=== PATIENT | female | born 1990 | race African-American/Black ===

== ENCOUNTER 2017-04-21 21:24 | Emergency (ER) | payer SELFPAY ==
[2017-04-21 21:39] VITALS: BP 126/86
--- NOTE | 2017-04-21 21:55 | EDM.PDOC ---
ED HPI GENERAL MEDICAL PROBLEM - General Chief Complaint: Laceration Stated Complaint: LACERATION ON RT HAND Time Seen by Provider: 04/21/17 21:54 Source of Information: Reports: Patient - History of Present Illness INITIAL COMMENTS - FREE TEXT/NARRATIVE: Patient is here for examination of a laceration to her right arm. She reports that she was walking by a mirror that she broke last night and scraped her arm on this. She denies any chronic medical conditions. She is not diabetic does not have any bleeding or clotting disorders. She did have a recent tetanus shot per her report when she returned back to college 3-4 years ago. Right Arm Pain Score (Numeric/FACES): 1 - Related Data Allergies Allergy/AdvReac Type Severity Reaction Status Date / Time dog dander Allergy Cannot Verified 07/17/15 15:34 Remember Home Meds: Home Meds . [No Known Home Meds] 04/21/17 [History] Past Medical History - Past Health History Medical/Surgical History: Denies Medical/Surgical History Other HEENT History: history of oral surgery with cap on tooth Musculoskeletal History: Reports: Other (See Below) Other Musculoskeletal History: achilles surgery 1 year ago Social & Family History - Tobacco Use Smoking Status *Q: Never Smoker - Caffeine Use Caffeine Use: Reports: Soda - Recreational Drug Use Recreational Drug Use: No Drug Use in Last 12 Months: No ED ROS GENERAL - Review of Systems Review Of Systems: See Below Constitutional: Reports: No Symptoms Respiratory: Reports: No Symptoms Cardiovascular: Reports: No Symptoms Skin: Reports: Other (laceration to right arm) ED EXAM, SKIN/RASH Exam: See Below General Appearance: Alert, WD/WN, No Apparent Distress Cardiovascular: Normal Peripheral Pulses Extremities: Normal Inspection, Normal Range of Motion Neurological: Alert, Oriented Psychiatric: Normal Affect Skin: Warm, Dry, Other (5 cm linear laceration to her right forearm) ED SKIN PROCEDURES - Laceration/Wound Repair Right Lower Arm Lac/Wound length In cm: 5 Appearance: Subcutaneous, Linear, Clean Distal NVT: No Tendon Injury Anesthetic Type: Local Local Anesthesia - Lidocaine (Xylocaine): 1% With EPI Local Anesthetic Volume: Other (7) Skin Prep: Chlorhexidine (Hibiciens) Exploration/Debridement/Repair: Wound Explored, in a Bloodless Field Closed with: Sutures Suture Size: 4-0 # of Sutures: 7 Suture Type: Nylon Course - Vital Signs Last Recorded V/S: Last Vital Signs Temp 98.6 F 04/21/17 21:37 Pulse 70 04/21/17 21:37 Resp 20 04/21/17 21:37 BP 126/86 04/21/17 21:37 Pulse Ox 100 04/21/17 21:37 - Orders/Labs/Meds Meds: Medications Discontinued Medications Generic Name Dose Route Start Last Admin Trade Name Lalo PRN Reason Stop Dose Admin Lidocaine/Epinephrine 20 ml 04/21/17 22:22 04/21/17 22:28 Xylocaine 1% With Epinephrine 1:100,000 INJECT 04/21/17 22:23 20 ml ONETIME ONE Administration - Re-Assessments/Exams Free Text/Narrative Re-Assessment/Exam: Tdap UTD. Patient tolerated wound repair well. Advised patient of wound care instructions and monitoring for infection, she verbalized understanding. She is to follow-up in 7-10 days for suture removal [facility]. 04/21/17 22:49 04/21/17 22:50 Departure - Departure Time of Disposition: 22:50 Disposition: Home, Self-Care 01 Condition: Good Clinical Impression: Laceration - Discharge Information Instructions: Laceration Care, Adult, [id number] Forms: ED Department Discharge Additional Instructions: Keep wound clean and dry. You may shower normally tomorrow but do not soak in a tub or go swimming in a hot tub or pool. Monitor for any redness or swelling or drainage. Follow-up in 7-10 days for suture removal with your primary provider.
[2017-04-21] MEDS ORDERED: Lidocaine 1% with EPINEPHrine 1:100,000 20 ML MDV INJECT ONE (22:22)
== END 2017-04-21 23:00 | disposition home or self-care (01) ==
LOC: JD.ED 21:24 → SUPCPDRO 21:24 → JD.ED 23:00
DX: S51.811A Laceration without foreign body of right forearm, initial encounter (principal); Z98.890 Other specified postprocedural states; W25.XXXA Contact with sharp glass, initial encounter
CPT/HCPCS: 12002; 99282-25; 99283-25

== ENCOUNTER 2018-04-30 15:50 | Emergency (ER) | payer MEDICAID ==
[2018-04-30 16:05] VITALS: BP 125/74
--- NOTE | 2018-04-30 16:53 | EDM.PDOC ---
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 Patient reports last menstrual period was February 15. She has had 2 positive at-home test. She states that she developed some spotting. She reports that today she appreciated heavier bleeding and passed a large clot. Reports associated symptoms of lightheadedness and dizziness. She has had some cramping in her suprapubic area and back throughout this this . she denies any current cramping. Denies any syncope. Patient is a . She has not yet seen an OB for this . believes her blood type is A+. Lower Abdomen Pain Score (Numeric/FACES): 7 - Related Data Allergies Allergy/AdvReac Type Severity Reaction Status Date / Time dog dander Allergy Cannot Verified 04/30/18 16:05 Remember Home Meds: Home Meds . 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 Denies: Nausea, Vomiting : Reports: Other (reports vaginal bleeding). Denies: Dysuria Musculoskeletal: Reports: Back Pain (during this , but none currently) Neurological: Reports: Dizziness. Denies: Syncope ED EXAM - Physical Exam Exam: See Below Exam Limited By: No Limitations General Appearance: Alert, WD/WN, No Apparent Distress Respiratory/Chest: No Respiratory Distress, Lungs Clear, Normal Breath Sounds Cardiovascular: Normal Peripheral Pulses, Regular Rate, Rhythm, No Murmur GI/Abdominal Exam: Normal Bowel Sounds, Soft, Non-Tender (Female) Exam: Vaginal Bleeding. No: Cervical Dilatation, Products of Conception, Tissue Present in Cervix/Vagina Neurological: Alert, Oriented, Normal Cognition Psychiatric: Normal Affect, Normal Mood Skin Exam: Warm, Dry, Normal Color Course - Vital Signs Last Recorded V/S: Last Vital Signs Temp 97.9 F 04/30/18 16:02 Pulse 89 04/30/18 16:02 Resp 18 04/30/18 16:02 BP 125/74 04/30/18 16:02 Pulse Ox 100 04/30/18 16:02 - Orders/Labs/Meds Labs: Laboratory Tests 04/30/18 04/30/18 04/30/18 Range/Units 16:39 16:39 16:39 HCG, Qual Positive H (NEGATIVE) HCG, Quant 1888.0 mIU/mL Urine Color (Yellow) Urine Appearance (Clear) Urine pH (5.0-8.0) Ur Specific [place] (1.005-1.030) Urine Protein (Negative) Urine Glucose (UA) (Negative) Urine Ketones (Negative) Urine Occult Blood (Negative) Urine Nitrite (Negative) Urine Bilirubin (Negative) Urine Urobilinogen (0.2-1.0) Ur Leukocyte Esterase (Negative) Urine RBC (0-5) /hpf Urine WBC (0-5) /hpf Ur Epithelial Cells (0-5) /hpf Urine Bacteria (FEW) /hpf Urine Mucus (FEW) /hpf Blood Type A POSITIVE 04/30/18 Range/Units 17:43 HCG, Qual (NEGATIVE) HCG, Quant mIU/mL Urine Color Yellow (Yellow) Urine Appearance Clear (Clear) Urine pH 6.5 (5.0-8.0) Ur Specific [place] 1.015 (1.005-1.030) Urine Protein Negative (Negative) Urine Glucose (UA) Negative (Negative) Urine Ketones Negative (Negative) Urine Occult Blood 3+ H (Negative) Urine Nitrite Negative (Negative) Urine Bilirubin Negative (Negative) Urine Urobilinogen 0.2 (0.2-1.0) Ur Leukocyte Esterase Negative (Negative) Urine RBC 10-20 H (0-5) /hpf Urine WBC 0-5 (0-5) /hpf Ur Epithelial Cells 0-5 (0-5) /hpf Urine Bacteria Few (FEW) /hpf Urine Mucus Few (FEW) /hpf Blood Type - Radiology Interpretation Free Text/Narrative:: transvaginal ulrasound impression per vrad: No intrauterine identified. Continued follow-up of b-hcg values is advised if ectopic is being considered. 1.4 cm submucosal fibroid. - Re-Assessments/Exams Free Text/Narrative Re-Assessment/Exam: 04/30/18 18:33 Reviewed the labs and imaging with the patient. Possible she is early with her quant low and nothing seen on ultrasound. More likely she has miscarried. I will have her follow-up with ob on Wednesday for a repeat quant and possibly additional ultrasounds pending symptoms. Discharge instructions as documented. Departure - Departure Time of Disposition: 18:33 Disposition: Home, Self-Care 01 Condition: Fair Clinical Impression: Threatened - Discharge Information *PRESCRIPTION DRUG MONITORING PROGRAM REVIEWED*: No *COPY OF PRESCRIPTION DRUG MONITORING REPORT IN PATIENT ADI: No Instructions: Threatened Miscarriage, [id number] Referrals: PCP,None [Primary Care Provider] - Oswaldo Stratton MD [Physician] - Forms: ED Department Discharge Additional Instructions: Rest. [id number] Tylenol as needed for discomfort. Make sure you're drinking plenty of fluids. Follow-up with Ob on Wednesday. Recommend Dr. Stratton or Dr. High at the [facility]. Call [phone] to schedule with him. you will need a repeat hCG to see if it is going up or down. He may also need ultrasounds to further evaluate. Please return to the ER if your symptoms change or worsen.
--- NOTE | 2018-05-01 11:01 | US ---
First trimester obstetrical ultrasound: Multiple real-time images were obtained transvaginally. Comparison: No previous study. No intrauterine gestational sac is seen. Small right adnexal cyst measuring 1.7 cm is noted. Small amount of free fluid is seen within the cul-de-sac. Questionable 1.4 cm subendometrial fibroid is present. No ovarian abnormality is seen. Impression: 1. No intrauterine gestational sac. Other incidental findings. 2. If patient has positive test, recommend repeat beta hCG to make sure levels decrease to confirm that ultrasound findings represent miscarriage and not nonvisualized ectopic . Diagnostic code #3 I agree with preliminary report issued by [facility] ([facility] report finalized on 04/30/18, 6:42 PM Central Time)
== END 2018-04-30 18:46 | disposition home or self-care (01) ==
LOC: JD.ED 15:50
DX: O20.0 Threatened abortion (principal); Z3A.01 Less than 8 weeks gestation of pregnancy
CPT/HCPCS: 36415; 76817; 76817-26; 81001; 84702; 84703; 86900; 86901; 99283; 99284-25

== ENCOUNTER 2020-07-15 16:09 | Emergency (ER) | payer SELFPAY ==
[2020-07-15] MEDS ORDERED: Sodium Chloride 0.9% 10 ML Syringe FLUSH PRN (17:32)
[2020-07-15] MEDS ORDERED: Sodium Chloride 0.9% 1,000 ML IV ONE (17:32)
[2020-07-15] MEDS ORDERED: Ketorolac 30 MG/ML SDV IVPUSH ONE (17:32)
[2020-07-15] MEDS ORDERED: Metoclopramide 10 MG/2 ML SDV IVPUSH ONE (17:32)
[2020-07-15] MEDS ORDERED: diphenhydrAMINE 50 MG/ML SDV IVPUSH ONE (17:32)
--- NOTE | 2020-07-15 17:40 | EDM.PDOC ---
ED HPI GENERAL MEDICAL PROBLEM - General Chief Complaint: Respiratory Problem Stated Complaint: HEADACHE/SORE NECK/NAUSEA Time Seen by Provider: 07/15/20 17:12 Source of Information: Reports: Patient, RN Notes Reviewed History Limitations: Reports: No Limitations - History of Present Illness INITIAL COMMENTS - FREE TEXT/NARRATIVE: Patient is a 29-year-old female who presents to the ED for evaluation of her headache. She states that since Wednesday, she has had a headache behind her eyes, and in the back of her head. She has been using Tylenol and this does not seem to helping much. She does feel nauseated, and states that she did vomit 1 time last night and early this morning. She is having some minor swelling to the left side of the neck, and into her submandibular area. She is not complaining of any sore throat right now, but states she has had a sore throat on and off for the past few days. She tries using kinsey tea to relieve the sore throat. The patient notes that she recently came off quarantine today, and she was quarantined due to her daughter having a positive exposure to her teacher. The patient states that her and her daughter did test negative last week for this. Patient did not think she is had any fevers or chills, she is not having a cough or shortness of breath, but having sore throat, nausea/vomiting. 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 ED EXAM, GENERAL - Physical Exam Exam: See Below Exam Limited By: No Limitations General Appearance: Alert, WD/WN, No Apparent Distress Ears: Normal External Exam, Normal Canal, Hearing Grossly Normal, Normal TMs Nose: Normal Inspection Throat/Mouth: Normal Inspection, Normal Lips, Normal Teeth, Normal Gums, Normal Oropharynx, Normal Voice, No Airway Compromise Head: Atraumatic, Normocephalic Neck: Normal Inspection, Full Range of Motion, Lymphadenopathy (L) (submandibular tenderness) Respiratory/Chest: No Respiratory Distress, Lungs Clear, Normal Breath Sounds, No Accessory Muscle Use, Chest Non-Tender Cardiovascular: Normal Peripheral Pulses, Regular Rate, Rhythm, No Murmur Peripheral Pulses: 2+: Radial (L), Radial (R) Extremities: Normal Inspection, Normal Capillary Refill Neurological: Alert, Oriented, Normal Cognition, No Motor/Sensory Deficits Psychiatric: Normal Affect, Normal Mood Skin Exam: Warm, Dry, Intact, Normal Color, No Rash Course - Vital Signs Last Recorded V/S: Last Vital Signs Temp 98.8 F 07/15/20 17:19 Pulse 99 07/15/20 17:19 Resp 20 07/15/20 17:19 BP 126/88 07/15/20 17:19 Pulse Ox 98 07/15/20 17:19 - Orders/Labs/Meds Orders: Active Orders 24 hr Category Date Time Status Peripheral IV Care [RC] . DIRECTED Care 07/15/20 17:32 Ordered CBC WITH AUTO DIFF [HEME] Stat Lab 07/15/20 17:32 Ordered CORONAVIRUS COVID-19 PCR PHL Stat Lab 07/15/20 17:33 Ordered Sodium Chloride 0.9% [Saline Flush] Med 07/15/20 17:32 Ordered 10 ml FLUSH ASDIRECTED PRN Peripheral IV Insertion Adult [OM.PC] Routine Oth 07/15/20 17:32 Ordered Medication Orders Sodium Chloride (Saline Flush) 10 ml FLUSH ASDIRECTED PRN PRN Reason: Keep Vein Open Last Admin: 07/15/20 18:04 Dose: 10 ml Documented by: FARIBA Labs: Laboratory Tests 07/15/20 07/15/20 Range/Units 17:57 17:57 WBC 7.93 (3.98-10.04) K/mm3 RBC 4.03 (3.98-5.22) M/mm3 Hgb 10.6 L (11.2-15.7) gm/dl Hct 33.6 L (34.1-44.9) % MCV 83.4 (79.4-94.8) fl MCH 26.3 (25.6-32.2) pg MCHC 31.5 L (32.2-35.5) g/dl RDW Std Deviation 38.3 (36.4-46.3) fL Plt Count 286 (182-369) K/mm3 MPV 10.2 (9.4-12.3) fl Neut % (Auto) 83.7 H (34.0-71.1) % Lymph % (Auto) 7.7 L (19.3-51.7) % Brooke % (Auto) 7.6 (4.7-12.5) % Eos % (Auto) 0.8 (0.7-5.8) Baso % (Auto) 0.1 (0.1-1.2) % Neut # (Auto) 6.64 H (1.56-6.13) K/mm3 Lymph # (Auto) 0.61 L (1.18-3.74) K/mm3 Brooke # (Auto) 0.60 H (0.24-0.36) K/mm3 Eos # (Auto) 0.06 (0.04-0.36) K/mm3 Baso # (Auto) 0.01 (0.01-0.08) K/mm3 Sodium 135 L (136-145) mEq/L Potassium 3.0 L (3.5-5.1) mEq/L Chloride 96 L (98-107) mEq/L Carbon Dioxide 27 (21-32) mEq/L Anion Gap 15.0 (5-15) BUN 7 (7-18) mg/dL Creatinine 0.8 (0.55-1.02) mg/dL Est Cr Clr Drug Dosing 117.02 mL/min Estimated GFR (MDRD) > 60 (>60) mL/min BUN/Creatinine Ratio 8.8 L (14-18) Glucose 116 H (74-106) mg/dL Calcium 9.3 (8.5-10.1) mg/dL Total Bilirubin 1.6 H (0.2-1.0) mg/dL AST 32 (15-37) U/L ALT 60 H (14-59) U/L Alkaline Phosphatase 101 (46-116) U/L Total Protein 9.0 H (6.4-8.2) g/dl Albumin 3.6 (3.4-5.0) g/dl Globulin 5.4 gm/dL Albumin/Globulin Ratio 0.7 L (1-2) Meds: Medications Generic Name Dose Route Start Last Admin Trade Name Freq PRN Reason Stop Dose Admin Sodium Chloride 10 ml 07/15/20 17:32 07/15/20 18:04 Saline Flush FLUSH 10 ml ASDIRECTED PRN Administration Keep Vein Open Discontinued Medications Generic Name Dose Route Start Last Admin Trade Name Freq PRN Reason Stop Dose Admin Diphenhydramine HCl 25 mg 07/15/20 17:32 07/15/20 18:07 Benadryl IVPUSH 07/15/20 17:33 25 mg ONETIME ONE Administration Sodium Chloride 1,000 mls @ 999 mls/hr 07/15/20 17:32 07/15/20 18:01 Normal Saline IV 07/15/20 18:32 999 mls/hr ASDIRECTED ONE Administration Ketorolac Tromethamine 30 mg 07/15/20 17:32 07/15/20 18:05 Toradol IVPUSH 07/15/20 17:33 30 mg ONETIME ONE Administration Metoclopramide HCl 10 mg 07/15/20 17:32 07/15/20 18:02 Reglan IVPUSH 07/15/20 17:33 10 mg ONETIME ONE Administration Potassium Chloride 40 meq 07/15/20 18:44 Klor-Con M20 PO 07/15/20 18:45 ONETIME ONE - Re-Assessments/Exams Free Text/Narrative Re-Assessment/Exam: 07/15/20 17:42 Patient presents to the ED for her headache, sore neck, nausea. We will give her some medication for headache, take some basic labs and do a state send out for coronavirus test. 07/15/20 18:46 Trip screen is positive at today's visit, she will be started on amoxicillin on outpatient basis. Labs did demonstrate a mildly low potassium at 3.0. We will give her 40 mEq in the ER p.o., and hopefully discharge her home after her other labs have resulted. Departure - Departure Time of Disposition: 18:50 Disposition: Home, Self-Care 01 Condition: Good Clinical Impression: Strep throat, Suspected 2019-nCoV infection - Discharge Information *PRESCRIPTION DRUG MONITORING PROGRAM REVIEWED*: No *COPY OF PRESCRIPTION DRUG MONITORING REPORT IN PATIENT ADI: No Prescriptions: Amoxicillin 500 mg PO BID 10 Days #20 tab Instructions: Strep Throat, Adult, [id number] Referrals: PCP,None [Primary Care Provider] - Forms: ED Department Discharge, ED Return to Work/School Form Additional Instructions: You were evaluated in the ER today for your headache, and nausea and left-sided neck swelling. Your strep screen was positive at today's visit, you will be started on amoxicillin for this, 1 tab 2 times a day for the next 10 days. You were given some IV medications for your headache, this seemed to relieve most your symptoms. You may use 600 mg ibuprofen every 6 hours for further pain relief of your throat, do not exceed 3200 mg in a 24-hour time span. You were tested for coronavirus at today's visit, please try to limit your exposure to others until you get the results from your state test back. This will likely take 2-3 business days. We will call you with your results. Please return to the ER at any time if symptoms change or worsen. Sepsis Event Note (ED) - Evaluation Sepsis Screening Result: No Definite Risk - Focused Exam Vital Signs: Vital Signs Temp Pulse Resp BP Pulse Ox 07/15/20 17:19 98.8 F 99 20 126/88 98 - My Orders Last 24 Hours: My Active Orders 07/15/20 17:32 Peripheral IV Care [RC] . DIRECTED CBC WITH AUTO DIFF [HEME] Stat Sodium Chloride 0.9% [Saline Flush] 10 ml FLUSH ASDIRECTED PRN Peripheral IV Insertion Adult [OM.PC] Routine 07/15/20 17:33 CORONAVIRUS COVID-19 PCR PHL Stat - Assessment/Plan Last 24 Hours: My Active Orders 07/15/20 17:32 Peripheral IV Care [RC] . DIRECTED CBC WITH AUTO DIFF [HEME] Stat Sodium Chloride 0.9% [Saline Flush] 10 ml FLUSH ASDIRECTED PRN Peripheral IV Insertion Adult [OM.PC] Routine 07/15/20 17:33 CORONAVIRUS COVID-19 PCR PHL Stat
[2020-07-15] MEDS ORDERED: Potassium Chloride 20 MEQ Tab.ER PO ONE (18:44)
[2020-07-15 19:08] VITALS: BP 109/72; PULSE 96
== END 2020-07-15 19:11 | disposition home or self-care (01) ==
LOC: JD.ED 16:09
DX: J02.0 Streptococcal pharyngitis (principal); E87.6 Hypokalemia; Z20.828 Contact with and (suspected) exposure to other viral communicable diseases; Z91.048 Other nonmedicinal substance allergy status
CPT/HCPCS: 36415; 80053; 85025; 87430; 96361; 96374; 96375; 99284; A9270; J1200; J1885; J2765; J7030; U0002

== ENCOUNTER 2020-07-24 10:32 | Inpatient (IN) | payer SELFPAY ==
[2020-07-24] MEDS ORDERED: Ondansetron 4 MG/2 ML SDV IVPUSH ONE (11:59)
[2020-07-24] MEDS ORDERED: Sodium Chloride 0.9% 1,000 ML IV STA (11:59)
[2020-07-24] MEDS: Potassium Chloride 10 MEQ in Premix Bag 1 BAG IV SCH ×5 (13:00→18:09)
[2020-07-24] MEDS ORDERED: Sodium Chloride 0.9% 10 ML Syringe FLUSH PRN (13:11)
[2020-07-24] MEDS ORDERED: Iopamidol 612 MG/ML 100 ML Bottle IVPUSH ONE (13:11)
[2020-07-24] MEDS ORDERED: Diatrizoate Meglumine/Diatrizoate Sodium 37% 120 ML Bottle PO ONE (13:11)
--- NOTE | 2020-07-24 13:44 | EDM.PDOC ---
ED HPI GENERAL MEDICAL PROBLEM - General Chief Complaint: General Stated Complaint: COVID + Time Seen by Provider: 07/24/20 11:12 Source of Information: Reports: Patient History Limitations: Reports: No Limitations - History of Present Illness INITIAL COMMENTS - FREE TEXT/NARRATIVE: Patient is a 29-year-old female presenting to the emergency department with complaints of weakness, chills, and abdominal pain over the course approximately the last 10 days. She was seen in this emergency department 9 days ago and diagnosed with strep throat and started on amoxicillin. She has been taking this medication. States that her throat feels better, however she has had numerous episodes of diarrhea, nausea and vomiting, upper abdominal pain, and generalized weakness and chills. She does not have a thermometer at home so she has not checked her temperature. She was Covid tested on July 15 when she was in the emergency department was found to be negative. Blood work was completed at that time as well and was found to be grossly unremarkable. Abdomen Pain Score (Numeric/FACES): 6 - Related Data Allergies Allergy/AdvReac Type Severity Reaction Status Date / Time dog dander Allergy Cannot Verified 07/24/20 10:51 Remember Home Meds: Home Meds Amoxicillin 500 mg PO BID 10 Days #20 tab 07/15/20 [Rx] Ascorbic Acid [Vitamin C] 0 mg PO DAILY 07/24/20 [History] Ferrous Sulfate [Iron] 0 mg PO DAILY 07/24/20 [History] Past Medical History - Past Health History Medical/Surgical History: Denies Medical/Surgical History HEENT History: Reports: Other (See Below) Other HEENT History: history of oral surgery with cap on tooth Gastrointestinal History: Reports: GERD [employer]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: , 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 Musculoskeletal History: Reports: Other (See Below) Other Musculoskeletal History: right achilles surgery 1 year ago Endocrine/Metabolic History: Reports: Obesity/BMI 30+ - Past Surgical History HEENT Surgical History: Reports: Oral Surgery Female Surgical History: Reports: Other (See Below) Other Female Surgeries/Procedures: breast surgery--abcess Social & Family History - Tobacco Use Tobacco Use Status *Q: Never Tobacco User - Caffeine Use Caffeine Use: Reports: Tea - Recreational Drug Use Recreational Drug Use: Yes Recreational Drug Type: Reports: Marijuana/Hashish Recreational Drug Use Frequency: Rarely ED ROS GENERAL - Review of Systems Review Of Systems: See Below Constitutional: Reports: Chills, Weakness, Fatigue, Decreased Appetite HEENT: Reports: No Symptoms Respiratory: Reports: Cough. Denies: Shortness of Breath Cardiovascular: Reports: No Symptoms. Denies: Chest Pain, Lightheadedness Endocrine: Reports: No Symptoms GI/Abdominal: Reports: Abdominal Pain, Diarrhea, Nausea, Vomiting : Reports: No Symptoms Musculoskeletal: Reports: No Symptoms Skin: Reports: No Symptoms Neurological: Reports: No Symptoms Psychiatric: Reports: No Symptoms Hematologic/Lymphatic: Reports: No Symptoms Immunologic: Reports: No Symptoms ED EXAM, GENERAL - Physical Exam Exam: See Below General Appearance: Alert, WD/WN, No Apparent Distress Respiratory/Chest: No Respiratory Distress, Lungs Clear, Normal Breath Sounds, No Accessory Muscle Use, Chest Non-Tender Cardiovascular: Normal Peripheral Pulses, Regular Rate, Rhythm, No Edema, No Gallop, No JVD, No Murmur, No Rub GI/Abdominal: Normal Bowel Sounds, Soft, No Organomegaly, No Distention, No Abnormal Bruit, No Mass, Tender (Epigastric tenderness) Back Exam: Normal Inspection, Full Range of Motion. No: CVA Tenderness (L), CVA Tenderness (R) Neurological: Alert, Oriented, CN II-XII Intact, Normal Cognition, Normal Gait, Normal Reflexes, No Motor/Sensory Deficits Psychiatric: Normal Affect, Normal Mood Skin Exam: Warm, Dry, Intact, Normal Color, No Rash Course - Vital Signs Last Recorded V/S: Last Vital Signs Temp 97.5 F 07/25/20 14:25 Pulse 106 H 07/24/20 18:10 Resp 23 H 07/25/20 14:25 BP 110/72 07/25/20 14:25 Pulse Ox 97 07/25/20 14:25 - Orders/Labs/Meds Orders: Active Orders 24 hr Category Date Time Status Abdomen Ltd [US] Stat Exams 07/24/20 15:40 Taken Medication Orders Acetaminophen (Tylenol) 650 mg PO Q4H PRN PRN Reason: Pain (Mild 1-3)/fever Azithromycin (Zithromax) 250 mg PO DAILY [facility] Last Admin: 07/25/20 08:40 Dose: 250 mg Documented by: MICKEY Potassium Chloride 10 meq/ (Premix) 100 mls @ 100 mls/hr IV ASDIRECTED [facility] Stop: 07/28/20 13:44 Last Admin: 07/24/20 18:09 Dose: 100 mls/hr Documented by: Infusion: 07/24/20 17:45 Dose: 100 mls/hr Documented by: Admin: 07/24/20 16:45 Dose: 100 mls/hr Documented by: Infusion: 07/24/20 16:28 Dose: 100 mls/hr Documented by: Admin: 07/24/20 15:28 Dose: 100 mls/hr Documented by: Infusion: 07/24/20 15:11 Dose: 100 mls/hr Documented by: Admin: 07/24/20 14:11 Dose: 100 mls/hr Documented by: Infusion: 07/24/20 14:00 Dose: 100 mls/hr Documented by: Admin: 07/24/20 13:00 Dose: 100 mls/hr Documented by: ANNMARIE Remdesivir 100 mg/ Sodium (Chloride) 100 mls @ 100 mls/hr IV Q24H [facility] Stop: 07/28/20 18:59 Morphine Sulfate (Morphine) 2 mg IVPUSH Q2H PRN PRN Reason: Pain (severe 7-10) Stop: 07/25/20 18:07 Last Admin: 07/25/20 14:26 Dose: 2 mg Documented by: Admin: 07/25/20 11:19 Dose: 2 mg Documented by: Admin: 07/25/20 08:40 Dose: 2 mg Documented by: Admin: 07/25/20 05:17 Dose: 2 mg Documented by: Admin: 07/24/20 23:44 Dose: 2 mg Documented by: Admin: 07/24/20 19:47 Dose: 2 mg Documented by: PAPI Ondansetron HCl (Zofran) 4 mg IV Q4H PRN PRN Reason: Nausea/Vomiting Oxycodone HCl (Oxycodone) 5 mg PO Q4H PRN PRN Reason: Pain (moderate 4-6) Sodium Chloride (Saline Flush) 10 ml FLUSH ONETIME PRN PRN Reason: IV FLUSH Last Admin: 07/24/20 14:38 Dose: 10 ml Documented by: ABBY Temazepam (Restoril) 15 mg PO BEDTIME PRN PRN Reason: Sleep Labs: Laboratory Tests 07/24/20 07/24/20 07/24/20 Range/Units 11:39 11:39 11:39 WBC 25.75 H (3.98-10.04) K/mm3 RBC 2.60 L (3.98-5.22) M/mm3 Hgb 6.8 L* D (11.2-15.7) gm/dl Hct 20.1 L (34.1-44.9) % MCV 77.3 L D (79.4-94.8) fl MCH 26.2 (25.6-32.2) pg MCHC 33.8 (32.2-35.5) g/dl RDW Std Deviation 33.1 L (36.4-46.3) fL Plt Count 804 H D (182-369) K/mm3 MPV 10.1 (9.4-12.3) fl Neut % (Auto) 84.2 H (34.0-71.1) % Lymph % (Auto) 8.3 L (19.3-51.7) % [place] % (Auto) 2.8 L (4.7-12.5) % Eos % (Auto) 1.6 (0.7-5.8) Baso % (Auto) 0.2 (0.1-1.2) % Neut # (Auto) 21.68 H (1.56-6.13) K/mm3 Lymph # (Auto) 2.15 (1.18-3.74) K/mm3 [place] # (Auto) 0.71 H (0.24-0.36) K/mm3 Eos # (Auto) 0.41 H (0.04-0.36) K/mm3 Baso # (Auto) 0.05 (0.01-0.08) K/mm3 Manual Slide Review Abnormal smear Sodium 133 L (136-145) mEq/L Potassium 2.9 L (3.5-5.1) mEq/L Chloride 95 L (98-107) mEq/L Carbon Dioxide 26 (21-32) mEq/L Anion Gap 14.9 (5-15) BUN 13 (7-18) mg/dL Creatinine 0.8 (0.55-1.02) mg/dL Est Cr Clr Drug Dosing 117.02 mL/min Estimated GFR (MDRD) > 60 (>60) mL/min BUN/Creatinine Ratio 16.3 (14-18) Glucose 113 H (74-106) mg/dL Lactic Acid (0.4-2.0) mmol/L Calcium 7.2 L D (8.5-10.1) mg/dL Iron (50-170) ug/dL TIBC (100-400) ug/dL % Saturation (20-55) % Transferrin (202-364) mg/dL Ferritin (8-252) ng/ml Total Bilirubin 3.0 H (0.2-1.0) mg/dL GGT (5-55) U/L AST 83 H (15-37) U/L ALT 70 H (14-59) U/L Alkaline Phosphatase 79 (46-116) U/L C-Reactive Protein 19.5 H* (<1.0) mg/dL Total Protein 7.0 (6.4-8.2) g/dl Albumin 1.8 L (3.4-5.0) g/dl Globulin 5.2 gm/dL Albumin/Globulin Ratio 0.4 L (1-2) Lipase (73-393) U/L HCG, Qual (NEGATIVE) Urine Color (Yellow) Urine Appearance (Clear) Urine pH (5.0-8.0) Ur Specific [place] (1.005-1.030) Urine Protein (Negative) Urine Glucose (UA) (Negative) Urine Ketones (Negative) Urine Occult Blood (Negative) Urine Nitrite (Negative) Urine Bilirubin (Negative) Urine Urobilinogen (0.2-1.0) Ur Leukocyte Esterase (Negative) Urine RBC (0-5) /hpf Urine WBC (0-5) /hpf Ur Squamous Epith Cells (0-5) /hpf Amorphous Sediment (NOT SEEN) /hpf Urine Bacteria (FEW) /hpf Urine Mucus (FEW) /hpf SARS-CoV-2 RNA (ANTWAN) (NEGATIVE) Blood Type A POSITIVE Gel Antibody Screen Negative Crossmatch See Detail 07/24/20 07/24/20 07/24/20 Range/Units 11:39 11:39 11:39 WBC (3.98-10.04) K/mm3 RBC (3.98-5.22) M/mm3 Hgb (11.2-15.7) gm/dl Hct (34.1-44.9) % MCV (79.4-94.8) fl MCH (25.6-32.2) pg MCHC (32.2-35.5) g/dl RDW Std Deviation (36.4-46.3) fL Plt Count (182-369) K/mm3 MPV (9.4-12.3) fl Neut % (Auto) (34.0-71.1) % Lymph % (Auto) (19.3-51.7) % [place] % (Auto) (4.7-12.5) % Eos % (Auto) (0.7-5.8) Baso % (Auto) (0.1-1.2) % Neut # (Auto) (1.56-6.13) K/mm3 Lymph # (Auto) (1.18-3.74) K/mm3 [place] # (Auto) (0.24-0.36) K/mm3 Eos # (Auto) (0.04-0.36) K/mm3 Baso # (Auto) (0.01-0.08) K/mm3 Manual Slide Review Sodium (136-145) mEq/L Potassium (3.5-5.1) mEq/L Chloride (98-107) mEq/L Carbon Dioxide (21-32) mEq/L Anion Gap (5-15) BUN (7-18) mg/dL Creatinine (0.55-1.02) mg/dL Est Cr Clr Drug Dosing mL/min Estimated GFR (MDRD) (>60) mL/min BUN/Creatinine Ratio (14-18) Glucose (74-106) mg/dL Lactic Acid (0.4-2.0) mmol/L Calcium (8.5-10.1) mg/dL Iron 116 (50-170) ug/dL TIBC 203 (100-400) ug/dL % Saturation 57 H (20-55) % Transferrin 162 L (202-364) mg/dL Ferritin 2176 H (8-252) ng/ml Total Bilirubin (0.2-1.0) mg/dL GGT (5-55) U/L AST (15-37) U/L ALT (14-59) U/L Alkaline Phosphatase (46-116) U/L C-Reactive Protein (<1.0) mg/dL Total Protein (6.4-8.2) g/dl Albumin (3.4-5.0) g/dl Globulin gm/dL Albumin/Globulin Ratio (1-2) Lipase 2354 H (73-393) U/L HCG, Qual Negative (NEGATIVE) Urine Color (Yellow) Urine Appearance (Clear) Urine pH (5.0-8.0) Ur Specific [place] (1.005-1.030) Urine Protein (Negative) Urine Glucose (UA) (Negative) Urine Ketones (Negative) Urine Occult Blood (Negative) Urine Nitrite (Negative) Urine Bilirubin (Negative) Urine Urobilinogen (0.2-1.0) Ur Leukocyte Esterase (Negative) Urine RBC (0-5) /hpf Urine WBC (0-5) /hpf Ur Squamous Epith Cells (0-5) /hpf Amorphous Sediment (NOT SEEN) /hpf Urine Bacteria (FEW) /hpf Urine Mucus (FEW) /hpf SARS-CoV-2 RNA ([facility]) (NEGATIVE) Blood Type Gel Antibody Screen Crossmatch 07/24/20 07/24/20 07/24/20 Range/Units 11:39 12:20 13:55 WBC (3.98-10.04) K/mm3 RBC (3.98-5.22) M/mm3 Hgb (11.2-15.7) gm/dl Hct (34.1-44.9) % MCV (79.4-94.8) fl MCH (25.6-32.2) pg MCHC (32.2-35.5) g/dl RDW Std Deviation (36.4-46.3) fL Plt Count (182-369) K/mm3 MPV (9.4-12.3) fl Neut % (Auto) (34.0-71.1) % Lymph % (Auto) (19.3-51.7) % [place] % (Auto) (4.7-12.5) % Eos % (Auto) (0.7-5.8) Baso % (Auto) (0.1-1.2) % Neut # (Auto) (1.56-6.13) K/mm3 Lymph # (Auto) (1.18-3.74) K/mm3 [place] # (Auto) (0.24-0.36) K/mm3 Eos # (Auto) (0.04-0.36) K/mm3 Baso # (Auto) (0.01-0.08) K/mm3 Manual Slide Review Sodium (136-145) mEq/L Potassium (3.5-5.1) mEq/L Chloride (98-107) mEq/L Carbon Dioxide (21-32) mEq/L Anion Gap (5-15) BUN (7-18) mg/dL Creatinine (0.55-1.02) mg/dL Est Cr Clr Drug Dosing mL/min Estimated GFR (MDRD) (>60) mL/min BUN/Creatinine Ratio (14-18) Glucose (74-106) mg/dL Lactic Acid 1.5 (0.4-2.0) mmol/L Calcium (8.5-10.1) mg/dL Iron (50-170) ug/dL TIBC (100-400) ug/dL % Saturation (20-55) % Transferrin (202-364) mg/dL Ferritin (8-252) ng/ml Total Bilirubin (0.2-1.0) mg/dL GGT 108 H (5-55) U/L AST (15-37) U/L ALT (14-59) U/L Alkaline Phosphatase (46-116) U/L C-Reactive Protein (<1.0) mg/dL Total Protein (6.4-8.2) g/dl Albumin (3.4-5.0) g/dl Globulin gm/dL Albumin/Globulin Ratio (1-2) Lipase (73-393) U/L HCG, Qual (NEGATIVE) Urine Color (Yellow) Urine Appearance (Clear) Urine pH (5.0-8.0) Ur Specific [place] (1.005-1.030) Urine Protein (Negative) Urine Glucose (UA) (Negative) Urine Ketones (Negative) Urine Occult Blood (Negative) Urine Nitrite (Negative) Urine Bilirubin (Negative) Urine Urobilinogen (0.2-1.0) Ur Leukocyte Esterase (Negative) Urine RBC (0-5) /hpf Urine WBC (0-5) /hpf Ur Squamous Epith Cells (0-5) /hpf Amorphous Sediment (NOT SEEN) /hpf Urine Bacteria (FEW) /hpf Urine Mucus (FEW) /hpf SARS-CoV-2 RNA ([facility]) Positive H (NEGATIVE) Blood Type Gel Antibody Screen Crossmatch 10/14/20 Range/Units 15:45 WBC (3.98-10.04) K/mm3 RBC (3.98-5.22) M/mm3 Hgb (11.2-15.7) gm/dl Hct (34.1-44.9) % MCV (79.4-94.8) fl MCH (25.6-32.2) pg MCHC (32.2-35.5) g/dl RDW Std Deviation (36.4-46.3) fL Plt Count (182-369) K/mm3 MPV (9.4-12.3) fl Neut % (Auto) (34.0-71.1) % Lymph % (Auto) (19.3-51.7) % [place] % (Auto) (4.7-12.5) % Eos % (Auto) (0.7-5.8) Baso % (Auto) (0.1-1.2) % Neut # (Auto) (1.56-6.13) K/mm3 Lymph # (Auto) (1.18-3.74) K/mm3 [place] # (Auto) (0.24-0.36) K/mm3 Eos # (Auto) (0.04-0.36) K/mm3 Baso # (Auto) (0.01-0.08) K/mm3 Manual Slide Review Sodium (136-145) mEq/L Potassium (3.5-5.1) mEq/L Chloride (98-107) mEq/L Carbon Dioxide (21-32) mEq/L Anion Gap (5-15) BUN (7-18) mg/dL Creatinine (0.55-1.02) mg/dL Est Cr Clr Drug Dosing mL/min Estimated GFR (MDRD) (>60) mL/min BUN/Creatinine Ratio (14-18) Glucose (74-106) mg/dL Lactic Acid (0.4-2.0) mmol/L Calcium (8.5-10.1) mg/dL Iron (50-170) ug/dL TIBC (100-400) ug/dL % Saturation (20-55) % Transferrin (202-364) mg/dL Ferritin (8-252) ng/ml Total Bilirubin (0.2-1.0) mg/dL GGT (5-55) U/L AST (15-37) U/L ALT (14-59) U/L Alkaline Phosphatase (46-116) U/L C-Reactive Protein (<1.0) mg/dL Total Protein (6.4-8.2) g/dl Albumin (3.4-5.0) g/dl Globulin gm/dL Albumin/Globulin Ratio (1-2) Lipase (73-393) U/L HCG, Qual (NEGATIVE) Urine Color Yellow (Yellow) Urine Appearance Slt cloudy H (Clear) Urine pH 6.0 (5.0-8.0) Ur Specific [place] 1.015 (1.005-1.030) Urine Protein Negative (Negative) Urine Glucose (UA) Negative (Negative) Urine Ketones Negative (Negative) Urine Occult Blood Negative (Negative) Urine Nitrite Negative (Negative) Urine Bilirubin 1+ H (Negative) Urine Urobilinogen 4.0 H (0.2-1.0) Ur Leukocyte Esterase Negative (Negative) Urine RBC 0-5 (0-5) /hpf Urine WBC 0-5 (0-5) /hpf Ur Squamous Epith Cells 0-5 (0-5) /hpf Amorphous Sediment Few H (NOT SEEN) /hpf Urine Bacteria Few (FEW) /hpf Urine Mucus Few (FEW) /hpf SARS-CoV-2 RNA ([facility]) (NEGATIVE) Blood Type Gel Antibody Screen Crossmatch Meds: Medications Generic Name Dose Route Start Last Admin Trade Name Freq PRN Reason Stop Dose Admin Acetaminophen 650 mg 07/24/20 18:02 Tylenol PO Q4H PRN Pain (Mild 1-3)/fever Azithromycin 250 mg 07/25/20 09:00 07/25/20 08:40 Zithromax PO 250 mg DAILY ANNALEE Administration Potassium Chloride 10 meq/ 100 mls @ 100 mls/hr 07/24/20 12:45 07/24/20 18:09 Premix IV 07/28/20 13:44 100 mls/hr ASDIRECTED ANNALEE Administration Remdesivir 100 mg/ Sodium 100 mls @ 100 mls/hr 07/25/20 18:00 Chloride IV 07/28/20 18:59 Q24H ANNALEE Morphine Sulfate 2 mg 07/24/20 18:02 07/25/20 14:26 Morphine IVPUSH 07/25/20 18:07 2 mg Q2H PRN Administration Pain (severe 7-10) Ondansetron HCl 4 mg 07/24/20 18:02 Zofran IV Q4H PRN Nausea/Vomiting Oxycodone HCl 5 mg 07/24/20 18:02 Oxycodone PO Q4H PRN Pain (moderate 4-6) Sodium Chloride 10 ml 07/24/20 13:11 07/24/20 14:38 Saline Flush FLUSH 10 ml ONETIME PRN Administration IV FLUSH Temazepam 15 mg 07/24/20 18:02 Restoril PO BEDTIME PRN Sleep Discontinued Medications Generic Name Dose Route Start Last Admin Trade Name Freq PRN Reason Stop Dose Admin Diatrizoate Meglum/Diatrizoate Sod 120 ml 07/24/20 13:11 07/24/20 14:38 Gastrografin 37% PO 07/24/20 13:12 60 ml ONETIME ONE Administration Diphenhydramine HCl 50 mg 07/24/20 14:02 07/24/20 14:12 Benadryl IVPUSH 07/24/20 14:03 50 mg ONETIME ONE Administration Sodium Chloride 1,000 mls @ 150 mls/hr 07/24/20 11:59 07/24/20 12:15 Normal Saline IV 07/24/20 18:38 999 mls/hr NOW STA Administration Sodium Chloride 1,000 mls @ 125 mls/hr 07/24/20 14:00 07/24/20 14:00 Normal Saline IV 125 mls/hr ASDIRECTED ANNALEE Administration Sodium Chloride 1,000 mls @ 125 mls/hr 07/24/20 18:15 Normal Saline IV ASDIRECTED ANNALEE Remdesivir 200 mg/ Sodium 250 mls @ 250 mls/hr 07/24/20 18:02 07/24/20 18:56 Chloride IV 07/24/20 18:03 250 mls/hr ONETIME ONE Administration Potassium Chloride/Sodium Chloride 1,000 mls @ 125 mls/hr 07/24/20 18:15 07/25/20 05:30 Normal Saline With 20 Meq Kcl IV 125 mls/hr ASDIRECTED ANNALEE Administration Iopamidol 100 ml 07/24/20 13:11 07/24/20 14:38 Isovue-300 (61%) IVPUSH 07/24/20 13:12 100 ml ONETIME ONE Administration Ondansetron HCl 4 mg 07/24/20 11:59 07/24/20 12:13 Zofran IVPUSH 07/24/20 12:00 4 mg ONETIME ONE Administration - Re-Assessments/Exams Free Text/Narrative Re-Assessment/Exam: She is a 29-year-old female presenting to the emergency department with complaints of abdominal pain, nausea and vomiting, cough, chills, diarrhea, and generalized weakness. She was seen here 9 days ago diagnosed with strep throat and treated with amoxicillin. At that time she was found to be Covid negative. On exam, she does have epigastric tenderness and appears like she does not feel well. Vital signs in triage show a minimally elevated temperature of 99.5, pulse 115, blood pressure 98/61, respiratory rate 16, oxygen 100% on room air. We will complete baseline labs give her some IV fluids. Have ordered CBC, CMP, CRP, hCG, urinalysis. Will start IV fluids at a 1 L bolus of normal saline. I have ordered Zofran for nausea. 07/24/20 13:20 Hematology was significant for WBC elevated at 25.75, hemoglobin low at 6.8, hematocrit low at 20.1, platelets elevated at 804, sodium 133, potassium 2.9, chloride 95, total bili 3.0, AST 83, ALT 70, CRP 19.5. I have ordered her IV fluids to begin at 150 mils per hour instead of a boluses to not further dilute out her hemoglobin. After discussion with patient. She denies a history of anemia. She has had no bloody or black stools. States that her diarrhea was yellowish or green. Denies any vomiting up of blood. She states she does have quite heavy menstrual periods and that her period this month was from July 13 to July 19. 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 On review, her hemoglobin was 10.6 o n 15 July and today is 6.8. Rectal exam with an occult stool was completed and found to be heme negative. Her WBC is also significantly elevated at 25.75. I have ordered a type and screen as well as crossmatch for 2 units of packed RBCs. She has not been able to produce urine sample thus far, however we will check that for urinary tract infection. Given her slightly elevated liver enzymes as well as her elevated total bili, there is concern for possible intra- abdominal infection, therefore I ordered a CT scan of the abdomen pelvis with IV and oral contrast. Her serum hCG is negative. Rajat the risk of benefits of blood transfusion and patient is in agreement to receive blood today. Appropriate written consent will be obtained. 07/24/20 1545 Lipase was found to be elevated at 2354. CT of his abdomen pelvis showed no acute intra-abdominal abnormalities, however does show a distended gallbladder. I have therefore ordered an ultrasound of the right upper quadrant to look for possible biliary obstruction. 07/24/20 1745 Ultrasound of the right upper quadrant showed no abnormalities. I have spoke with the hospitalist, Dr. Corado. He will admit the patient. 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
[2020-07-24] MEDS ORDERED: Sodium Chloride 0.9% 1,000 ML IV SCH ×2 (14:00→18:15)
[2020-07-24] MEDS ORDERED: diphenhydrAMINE 50 MG/ML SDV IVPUSH ONE (14:02)
[2020-07-24] MEDS ORDERED: Ondansetron 4 MG/2 ML SDV IV PRN (18:02)
[2020-07-24] MEDS ORDERED: Temazepam 15 MG Cap PO PRN (18:02)
--- NOTE | 2020-07-24 18:16 | PCM.HP.2 ---
H&P History of Present Illness - General Date of Service: 07/24/20 Admit Problem/Dx: Admission Diagnosis/Problem Admission Diagnosis/Problem Anemia Source of Information: Patient History Limitations: Reports: No Limitations - History of Present Illness Initial Comments - Free Text/Narative: The patient is a 29-year-old female who had presented to the emergency department complaining of weakness chills and abdominal pain over the past week. The patient said on Wednesday she had been treated for strep throat with ampicillin. The patient patient says that she was also tested for Covid on July 15, 2020 and was found to be negative. The patient also has had some episodes of nausea, vomiting and diarrhea as well as upper abdominal pain. She also has had some episodes of fever and chills. Patient has denied any hematemesis or hematochezia. Patient says that she does have a history of heavy menses. The patient also had a hemoglobin at her last ER visit that was es sentially normal. The patient also has been taking iron with vitamin C for her anemia. The patient has been in her usual state of health although 2 months ago she felt like she had COVID-19 and again was tested negative. Onset of Symptoms: Reports: Gradual Duration of Symptoms: Reports: Day(s):, Getting Worse Location: Reports: Generalized Improves with: Reports: Rest Context: Reports: Sick Contact Associated Symptoms: Reports: Cough, Fever/Chills, Headaches, Loss of Appetite, Malaise, Nausea/Vomiting Abdomen Pain Score (Numeric/FACES): 6 - Related Data Allergies/Adverse Reactions: Allergies Allergy/AdvReac Type Severity Reaction Status Date / Time dog dander Allergy Cannot Verified 07/24/20 10:51 Remember Home Medications: Home Meds Amoxicillin 500 mg PO BID 10 Days #20 tab 07/15/20 [Rx] Ascorbic Acid [Vitamin C] 0 mg PO DAILY 07/24/20 [History] Ferrous Sulfate [Iron] 0 mg PO DAILY 07/24/20 [History] Past Medical History - Past Health History Medical/Surgical History: Denies Medical/Surgical History HEENT History: Reports: Other (See Below) Other HEENT History: history of oral surgery with cap on tooth Cardiovascular History: Reports: None Respiratory History: Reports: None Gastrointestinal History: Reports: [employer] History: Reports: , Spontaneous Musculoskeletal History: Reports: Other (See Below) Other Musculoskeletal History: right achilles surgery 1 year ago Endocrine/Metabolic History: Reports: Obesity/BMI 30+ Hematologic History: Reports: None - Past Surgical History HEENT Surgical History: Reports: Oral Surgery Female Surgical History: Reports: Other (See Below) Other Female Surgeries/Procedures: breast surgery--abcess Social & Family History - Tobacco Use Tobacco Use Status *Q: Never Tobacco User - Caffeine Use Caffeine Use: Reports: Tea - Recreational Drug Use Recreational Drug Use: Yes Recreational Drug Type: Reports: Marijuana/Hashish Recreational Drug Use Frequency: Rarely H&P Review of Systems - Review of Systems: Review Of Systems: See Below General: Reports: Fever, Chills, Malaise, Weakness HEENT: Reports: Sore Throat Pulmonary: Reports: No Symptoms Cardiovascular: Reports: No Symptoms Gastrointestinal: Reports: Diarrhea, Nausea, Vomiting. Denies: Black Stool, Bloody Stool Genitourinary: Reports: No Symptoms Musculoskeletal: Reports: No Symptoms Skin: Reports: Jaundice Psychiatric: Reports: No Symptoms Neurological: Reports: No Symptoms Hematologic/Lymphatic: Reports: Anemia Immunologic: Reports: No Symptoms Exam - Exam Exam: See Below - Vital Signs Vital Signs: Last Vital Signs Temp 37.9 C 07/24/20 16:45 Pulse 106 H 07/24/20 18:10 Resp 20 07/24/20 18:10 BP 93/62 07/24/20 18:10 Pulse Ox 95 07/24/20 18:10 Weight: 98.883 kg - Exam Quality Assessment: No: Supplemental Oxygen General: Alert, Oriented, Cooperative HEENT: EACs Clear, EOMI, Nares Patent. No: Conjunctiva Clear (Conjunctivae inflamed), Mucosa Moist & Slaughter (Dry), Posterior Pharynx Clear (Inflamed) Neck: Supple, Trachea Midline, Lymphadenopathy (Anterior cervical) Lungs: Clear to Auscultation, Normal Respiratory Effort Cardiovascular: Regular Rate, Regular Rhythm GI/Abdominal Exam: Normal Bowel Sounds, No Distention, Tender (Superior to umbilicus, negative Zheng sign) (Female) Exam: Deferred Rectal (Female) Exam: Deferred (Hemoccult negative in ER) Back Exam: Normal Inspection, Full Range of Motion Extremities: Normal Inspection, Normal Range of Motion, No Pedal Edema Skin: Warm, Dry, Intact Neurological: Cranial Nerves Intact Neuro Extensive - Mental Status: Alert, Oriented x3 Neuro Extensive - Motor, Sensory, Reflexes: CN II-XII Intact Psychiatric: Alert, Normal Affect, Normal Mood - Patient Data Lab Results Last 24 hrs: Laboratory Results - last 24 hr 07/24/20 07/24/20 07/24/20 Range/Units 11:39 11:39 11:39 WBC 25.75 H (3.98-10.04) K/mm3 RBC 2.60 L (3.98-5.22) M/mm3 Hgb 6.8 L* D (11.2-15.7) gm/dl Hct 20.1 L (34.1-44.9) % MCV 77.3 L D (79.4-94.8) fl MCH 26.2 (25.6-32.2) pg MCHC 33.8 (32.2-35.5) g/dl RDW Std Deviation 33.1 L (36.4-46.3) fL Plt Count 804 H D (182-369) K/mm3 MPV 10.1 (9.4-12.3) fl Neut % (Auto) 84.2 H (34.0-71.1) % Lymph % (Auto) 8.3 L (19.3-51.7) % [place] % (Auto) 2.8 L (4.7-12.5) % Eos % (Auto) 1.6 (0.7-5.8) Baso % (Auto) 0.2 (0.1-1.2) % Neut # (Auto) 21.68 H (1.56-6.13) K/mm3 Lymph # (Auto) 2.15 (1.18-3.74) K/mm3 [place] # (Auto) 0.71 H (0.24-0.36) K/mm3 Eos # (Auto) 0.41 H (0.04-0.36) K/mm3 Baso # (Auto) 0.05 (0.01-0.08) K/mm3 Manual Slide Review Abnormal smear Sodium 133 L (136-145) mEq/L Potassium 2.9 L (3.5-5.1) mEq/L Chloride 95 L (98-107) mEq/L Carbon Dioxide 26 (21-32) mEq/L Anion Gap 14.9 (5-15) BUN 13 (7-18) mg/dL Creatinine 0.8 (0.55-1.02) mg/dL Est Cr Clr Drug Dosing 117.02 mL/min Estimated GFR (MDRD) > 60 (>60) mL/min BUN/Creatinine Ratio 16.3 (14-18) Glucose 113 H (74-106) mg/dL Lactic Acid (0.4-2.0) mmol/L Calcium 7.2 L D (8.5-10.1) mg/dL Iron (50-170) ug/dL TIBC (100-400) ug/dL % Saturation (20-55) % Transferrin (202-364) mg/dL Ferritin (8-252) ng/ml Total Bilirubin 3.0 H (0.2-1.0) mg/dL GGT (5-55) U/L AST 83 H (15-37) U/L ALT 70 H (14-59) U/L Alkaline Phosphatase 79 (46-116) U/L C-Reactive Protein 19.5 H* (<1.0) mg/dL Total Protein 7.0 (6.4-8.2) g/dl Albumin 1.8 L (3.4-5.0) g/dl Globulin 5.2 gm/dL Albumin/Globulin Ratio 0.4 L (1-2) Lipase (73-393) U/L HCG, Qual (NEGATIVE) Urine Color (Yellow) Urine Appearance (Clear) Urine pH (5.0-8.0) Ur Specific [place] (1.005-1.030) Urine Protein (Negative) Urine Glucose (UA) (Negative) Urine Ketones (Negative) Urine Occult Blood (Negative) Urine Nitrite (Negative) Urine Bilirubin (Negative) Urine Urobilinogen (0.2-1.0) Ur Leukocyte Esterase (Negative) Urine RBC (0-5) /hpf Urine WBC (0-5) /hpf Ur Squamous Epith Cells (0-5) /hpf Amorphous Sediment (NOT SEEN) /hpf Urine Bacteria (FEW) /hpf Urine Mucus (FEW) /hpf SARS-CoV-2 RNA (ANTWAN) (NEGATIVE) Blood Type A POSITIVE Gel Antibody Screen Negative Crossmatch See Detail 07/24/20 07/24/20 07/24/20 Range/Units 11:39 11:39 11:39 WBC (3.98-10.04) K/mm3 RBC (3.98-5.22) M/mm3 Hgb (11.2-15.7) gm/dl Hct (34.1-44.9) % MCV (79.4-94.8) fl MCH (25.6-32.2) pg MCHC (32.2-35.5) g/dl RDW Std Deviation (36.4-46.3) fL Plt Count (182-369) K/mm3 MPV (9.4-12.3) fl Neut % (Auto) (34.0-71.1) % Lymph % (Auto) (19.3-51.7) % [place] % (Auto) (4.7-12.5) % Eos % (Auto) (0.7-5.8) Baso % (Auto) (0.1-1.2) % Neut # (Auto) (1.56-6.13) K/mm3 Lymph # (Auto) (1.18-3.74) K/mm3 [place] # (Auto) (0.24-0.36) K/mm3 Eos # (Auto) (0.04-0.36) K/mm3 Baso # (Auto) (0.01-0.08) K/mm3 Manual Slide Review Sodium (136-145) mEq/L Potassium (3.5-5.1) mEq/L Chloride (98-107) mEq/L Carbon Dioxide (21-32) mEq/L Anion Gap (5-15) BUN (7-18) mg/dL Creatinine (0.55-1.02) mg/dL Est Cr Clr Drug Dosing mL/min Estimated GFR (MDRD) (>60) mL/min BUN/Creatinine Ratio (14-18) Glucose (74-106) mg/dL Lactic Acid (0.4-2.0) mmol/L Calcium (8.5-10.1) mg/dL Iron 116 (50-170) ug/dL TIBC 203 (100-400) ug/dL % Saturation 57 H (20-55) % Transferrin 162 L (202-364) mg/dL Ferritin 2176 H (8-252) ng/ml Total Bilirubin (0.2-1.0) mg/dL GGT (5-55) U/L AST (15-37) U/L ALT (14-59) U/L Alkaline Phosphatase (46-116) U/L C-Reactive Protein (<1.0) mg/dL Total Protein (6.4-8.2) g/dl Albumin (3.4-5.0) g/dl Globulin gm/dL Albumin/Globulin Ratio (1-2) Lipase 2354 H (73-393) U/L HCG, Qual Negative (NEGATIVE) Urine Color (Yellow) Urine Appearance (Clear) Urine pH (5.0-8.0) Ur Specific [place] (1.005-1.030) Urine Protein (Negative) Urine Glucose (UA) (Negative) Urine Ketones (Negative) Urine Occult Blood (Negative) Urine Nitrite (Negative) Urine Bilirubin (Negative) Urine Urobilinogen (0.2-1.0) Ur Leukocyte Esterase (Negative) Urine RBC (0-5) /hpf Urine WBC (0-5) /hpf Ur Squamous Epith Cells (0-5) /hpf Amorphous Sediment (NOT SEEN) /hpf Urine Bacteria (FEW) /hpf Urine Mucus (FEW) /hpf SARS-CoV-2 RNA (ANTWAN) (NEGATIVE) Blood Type Gel Antibody Screen Crossmatch 07/24/20 07/24/20 07/24/20 Range/Units 11:39 12:20 13:55 WBC (3.98-10.04) K/mm3 RBC (3.98-5.22) M/mm3 Hgb (11.2-15.7) gm/dl Hct (34.1-44.9) % MCV (79.4-94.8) fl MCH (25.6-32.2) pg MCHC (32.2-35.5) g/dl RDW Std Deviation (36.4-46.3) fL Plt Count (182-369) K/mm3 MPV (9.4-12.3) fl Neut % (Auto) (34.0-71.1) % Lymph % (Auto) (19.3-51.7) % [place] % (Auto) (4.7-12.5) % Eos % (Auto) (0.7-5.8) Baso % (Auto) (0.1-1.2) % Neut # (Auto) (1.56-6.13) K/mm3 Lymph # (Auto) (1.18-3.74) K/mm3 [place] # (Auto) (0.24-0.36) K/mm3 Eos # (Auto) (0.04-0.36) K/mm3 Baso # (Auto) (0.01-0.08) K/mm3 Manual Slide Review Sodium (136-145) mEq/L Potassium (3.5-5.1) mEq/L Chloride (98-107) mEq/L Carbon Dioxide (21-32) mEq/L Anion Gap (5-15) BUN (7-18) mg/dL Creatinine (0.55-1.02) mg/dL Est Cr Clr Drug Dosing mL/min Estimated GFR (MDRD) (>60) mL/min BUN/Creatinine Ratio (14-18) Glucose (74-106) mg/dL Lactic Acid 1.5 (0.4-2.0) mmol/L Calcium (8.5-10.1) mg/dL Iron (50-170) ug/dL TIBC (100-400) ug/dL % Saturation (20-55) % Transferrin (202-364) mg/dL Ferritin (8-252) ng/ml Total Bilirubin (0.2-1.0) mg/dL GGT 108 H (5-55) U/L AST (15-37) U/L ALT (14-59) U/L Alkaline Phosphatase (46-116) U/L C-Reactive Protein (<1.0) mg/dL Total Protein (6.4-8.2) g/dl Albumin (3.4-5.0) g/dl Globulin gm/dL Albumin/Globulin Ratio (1-2) Lipase (73-393) U/L HCG, Qual (NEGATIVE) Urine Color (Yellow) Urine Appearance (Clear) Urine pH (5.0-8.0) Ur Specific [place] (1.005-1.030) Urine Protein (Negative) Urine Glucose (UA) (Negative) Urine Ketones (Negative) Urine Occult Blood (Negative) Urine Nitrite (Negative) Urine Bilirubin (Negative) Urine Urobilinogen (0.2-1.0) Ur Leukocyte Esterase (Negative) Urine RBC (0-5) /hpf Urine WBC (0-5) /hpf Ur Squamous Epith Cells (0-5) /hpf Amorphous Sediment (NOT SEEN) /hpf Urine Bacteria (FEW) /hpf Urine Mucus (FEW) /hpf SARS-CoV-2 RNA (ANTWAN) Positive H (NEGATIVE) Blood Type Gel Antibody Screen Crossmatch 07/24/20 Range/Units 15:45 WBC (3.98-10.04) K/mm3 RBC (3.98-5.22) M/mm3 Hgb (11.2-15.7) gm/dl Hct (34.1-44.9) % MCV (79.4-94.8) fl MCH (25.6-32.2) pg MCHC (32.2-35.5) g/dl RDW Std Deviation (36.4-46.3) fL Plt Count (182-369) K/mm3 MPV (9.4-12.3) fl Neut % (Auto) (34.0-71.1) % Lymph % (Auto) (19.3-51.7) % [place] % (Auto) (4.7-12.5) % Eos % (Auto) (0.7-5.8) Baso % (Auto) (0.1-1.2) % Neut # (Auto) (1.56-6.13) K/mm3 Lymph # (Auto) (1.18-3.74) K/mm3 [place] # (Auto) (0.24-0.36) K/mm3 Eos # (Auto) (0.04-0.36) K/mm3 Baso # (Auto) (0.01-0.08) K/mm3 Manual Slide Review Sodium (136-145) mEq/L Potassium (3.5-5.1) mEq/L Chloride (98-107) mEq/L Carbon Dioxide (21-32) mEq/L Anion Gap (5-15) BUN (7-18) mg/dL Creatinine (0.55-1.02) mg/dL Est Cr Clr Drug Dosing mL/min Estimated GFR (MDRD) (>60) mL/min BUN/Creatinine Ratio (14-18) Glucose (74-106) mg/dL Lactic Acid (0.4-2.0) mmol/L Calcium (8.5-10.1) mg/dL Iron (50-170) ug/dL TIBC (100-400) ug/dL % Saturation (20-55) % Transferrin (202-364) mg/dL Ferritin (8-252) ng/ml Total Bilirubin (0.2-1.0) mg/dL GGT (5-55) U/L AST (15-37) U/L ALT (14-59) U/L Alkaline Phosphatase (46-116) U/L C-Reactive Protein (<1.0) mg/dL Total Protein (6.4-8.2) g/dl Albumin (3.4-5.0) g/dl Globulin gm/dL Albumin/Globulin Ratio (1-2) Lipase (73-393) U/L HCG, Qual (NEGATIVE) Urine Color Yellow (Yellow) Urine Appearance Slt cloudy H (Clear) Urine pH 6.0 (5.0-8.0) Ur Specific [place] 1.015 (1.005-1.030) Urine Protein Negative (Negative) Urine Glucose (UA) Negative (Negative) Urine Ketones Negative (Negative) Urine Occult Blood Negative (Negative) Urine Nitrite Negative (Negative) Urine Bilirubin 1+ H (Negative) Urine Urobilinogen 4.0 H (0.2-1.0) Ur Leukocyte Esterase Negative (Negative) Urine RBC 0-5 (0-5) /hpf Urine WBC 0-5 (0-5) /hpf Ur Squamous Epith Cells 0-5 (0-5) /hpf Amorphous Sediment Few H (NOT SEEN) /hpf Urine Bacteria Few (FEW) /hpf Urine Mucus Few (FEW) /hpf SARS-CoV-2 RNA (ANTWAN) (NEGATIVE) Blood Type Gel Antibody Screen Crossmatch Result Diagrams: 07/24/20 11:39 07/24/20 11:39 Sepsis Event Note - Evaluation Sepsis Screening Result: Possible Sepsis Risk - Focused Exam Vital Signs: Vital Signs Temp Temp Pulse Resp BP Pulse Ox 07/24/20 18:10 106 H 20 93/62 95 07/24/20 16:45 37.9 C 106 H 24 H 89/63 L 97 07/24/20 16:40 37.6 C 106 H 24 H 96/67 96 07/24/20 16:35 37.7 C 105 H 24 H 95/07/24/20 16:30 37.9 C 106 H 24 H 97/07/24/20 16:15 108 H 20 95/70 07/24/20 15:45 37.4 C 108 H 20 98/71 95 07/24/20 14:45 106 H 20 94/68 98 07/24/20 14:15 37.4 C 108 H 20 102/72 07/24/20 14:10 106 H 18 96/70 07/24/20 14:06 37.5 C 106 H 18 88/64 L 07/24/20 14:00 37.7 C 109 H 18 92/68 07/24/20 13:55 37.2 C 108 H 18 90/68 07/24/20 10:47 37.5 C 115 H 16 98/61 100 *Q Meaningful Use (ADM) - VTE *Q VTE Pharmacological Contraindications *Q: Patient has Severe Anemia - Problem List (1) COVID-19 SNOMED Code(s): 324634876 ICD Code: U07.1 - COVID-19 Status: Acute Current Visit: Yes (2) Anemia SNOMED Code(s): 867235368 ICD Code: D64.9 - ANEMIA, UNSPECIFIED Status: Acute Current Visit: Yes Qualifiers: Anemia type: acquired or hereditary hemolytic anemia Hemolytic anemia type: acquired, autoimmune, 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 (3) Cardiomegaly SNOMED Code(s): 1045131 ICD Code: I51.7 - CARDIOMEGALY Status: Chronic Priority: High Current Visit: Yes (4) Hypokalemia SNOMED Code(s): 31314379 ICD Code: E87.6 - HYPOKALEMIA Status: Acute Current Visit: Yes (5) Pancreatitis SNOMED Code(s): 58176252 ICD Code: K85.90 - ACUTE PANCREATITIS WITHOUT NECROSIS OR INFECTION, UNSP Status: Acute Current Visit: Yes Qualifiers: Chronicity: acute Pancreatitis type: unspecified pancreatitis type Acute pancreatitis complication: no infection or necrosis Qualified Code(s): K85.90 - Acute pancreatitis without necrosis or infection, unspecified (6) Strep throat SNOMED Code(s): 74092958 ICD Code: J02.0 - STREPTOCOCCAL PHARYNGITIS Status: Acute Priority: High Current Visit: Yes Problem List Initiated/Reviewed/Updated: Yes Orders Last 24hrs: Active Orders 24 hr Category Date Time Status Patient Status [ADT] Routine ADT 07/24/20 18:02 Ordered Antiembolic Devices [RC] PER UNIT ROUTINE Care 07/24/20 18:06 Ordered Cardiac Monitoring [RC] CONTINUOUS Care 07/24/20 18:04 Ordered Oxygen Therapy [RC] PRN Care 07/24/20 18:02 Ordered Pulse Oximetry [RC] CONTINUOUS Care 07/24/20 18:04 Ordered Up ad Helga [RC] ASDIRECTED Care 07/24/20 18:02 Ordered VTE/DVT Education [RC] PER UNIT ROUTINE Care 07/24/20 18:02 Ordered Vital Signs [RC] Q4H Care 07/24/20 18:02 Ordered Nothing per Oral Now Diet [DIET] Diet 07/24/20 Breakfast Ordered Abdomen Ltd [US] Stat Exams 07/24/20 15:40 Taken Abdomen Pelvis w Cont [CT] Stat Exams 07/24/20 12:46 Taken Chest 1V Frontal [CR] Stat Exams 07/24/20 12:46 Taken C-REACTIVE PROTEIN [CHEM] AM Lab 07/25/20 05:11 Ordered CBC WITH AUTO DIFF [HEME] AM Lab 07/25/20 05:11 Ordered COMPREHENSIVE METABOLIC PN,CMP [CHEM] AM Lab 07/25/20 05:11 Ordered CULTURE BLOOD [BC] Stat Lab 07/24/20 13:55 Received CULTURE BLOOD [BC] Stat Lab 07/24/20 14:08 Received D-DIMER QUANTITATIVE [COAG] AM Lab 07/25/20 05:11 Ordered LIPASE [CHEM] AM Lab 07/25/20 05:11 Ordered MAGNESIUM [CHEM] AM Lab 07/25/20 05:11 Ordered PHOSPHORUS [CHEM] AM Lab 07/25/20 05:11 Ordered Acetaminophen [TylenoL] Med 07/24/20 18:02 Ordered 650 mg PO Q4H PRN Azithromycin [Zithromax] Med 07/25/20 09:00 Ordered 250 mg PO DAILY Morphine Med 07/24/20 18:02 Ordered 2 mg IVPUSH Q2H PRN Ondansetron [Zofran] Med 07/24/20 18:02 Ordered 4 mg IV Q4H PRN Potassium Chloride [KCl 10 MEQ in Water 100 ML] 10 meq Med 07/24/20 12:45 Active Premix Bag 1 bag IV ASDIRECTED Remdesivir (Eua) [Remdesivir (EUA)] 100 mg Med 07/25/20 09:00 Ordered Sodium Chloride 0.9% [Normal Saline] 100 ml IV Q24H Remdesivir (Eua) [Remdesivir (EUA)] 200 mg Med 07/24/20 18:02 Ordered Sodium Chloride 0.9% [Normal Saline] 250 ml IV ONETIME Sodium Chloride 0.9% [Normal Saline] 1,000 ml Med 07/24/20 14:00 Active IV ASDIRECTED Sodium Chloride 0.9% [Normal Saline] 1,000 ml Med 07/24/20 18:15 Ordered IV ASDIRECTED Sodium Chloride 0.9% [Normal Saline] 1,000 ml Med 07/24/20 11:59 Active IV NOW Sodium Chloride 0.9% [Saline Flush] Med 07/24/20 13:11 Active 10 ml FLUSH ONETIME PRN Sodium Chloride 0.9% with KCl 20 mEq @ 125 mL/Hr (1000 Med 07/24/20 18:15 Ordered mL) NS + KCl 20mEq/L [Normal Saline with 20 mEq KCl] 1,000 ml IV ASDIRECTED Temazepam [Restoril] Med 07/24/20 18:02 Ordered 15 mg PO BEDTIME PRN oxyCODONE Med 07/24/20 18:02 Ordered 5 mg PO Q4H PRN Blood Culture x2 Reflex Set [OM.PC] Stat Oth 07/24/20 13:30 Ordered Sequential Compression Device [OM.PC] Per Unit Routine Oth 07/24/20 18:05 Ordered Transfuse Red Blood Cells [COMM] Routine Oth 07/24/20 13:31 Ordered VTE Pharmacological Contraindications [AST] Per Unit Oth 07/24/20 18:02 Ordered Routine Resuscitation Status Routine Resus Stat 07/24/20 18:02 Ordered Medication Orders Acetaminophen (Tylenol) 650 mg PO Q4H PRN PRN Reason: Pain (Mild 1-3)/fever Azithromycin (Zithromax) 250 mg PO DAILY ANNALEE Sodium Chloride (Normal Saline) 1,000 mls @ 150 mls/hr IV NOW STA Stop: 07/24/20 18:38 Last Admin: 07/24/20 12:15 Dose: 999 mls/hr Documented by: DELILAH Potassium Chloride 10 meq/ (Premix) 100 mls @ 100 mls/hr IV ASDIRECTED ANNALEE Stop: 07/28/20 13:44 Last Admin: 07/24/20 18:09 Dose: 100 mls/hr Documented by: Infusion: 07/24/20 17:45 Dose: 100 mls/hr Documented by: Admin: 07/24/20 16:45 Dose: 100 mls/hr Documented by: Infusion: 07/24/20 16:28 Dose: 100 mls/hr Documented by: Admin: 07/24/20 15:28 Dose: 100 mls/hr Documented by: Infusion: 07/24/20 15:11 Dose: 100 mls/hr Documented by: Admin: 07/24/20 14:11 Dose: 100 mls/hr Documented by: Infusion: 07/24/20 14:00 Dose: 100 mls/hr Documented by: Admin: 07/24/20 13:00 Dose: 100 mls/hr Documented by: ANNMARIE Sodium Chloride (Normal Saline) 1,000 mls @ 125 mls/hr IV ASDIRECTED [facility] Last Admin: 07/24/20 14:00 Dose: 125 mls/hr Documented by: ANNMARIE Sodium Chloride (Normal Saline) 1,000 mls @ 125 mls/hr IV ASDIRECTED [facility] Remdesivir 200 mg/ Sodium (Chloride) 250 mls @ 250 mls/hr IV ONETIME ONE Stop: 07/24/20 18:03 Remdesivir 100 mg/ Sodium (Chloride) 100 mls @ 100 mls/hr IV Q24H ANNALEE Stop: 07/28/20 09:59 Morphine Sulfate (Morphine) 2 mg IVPUSH Q2H PRN PRN Reason: Pain (severe 7-10) Stop: 07/25/20 18:07 Ondansetron HCl (Zofran) 4 mg IV Q4H PRN PRN Reason: Nausea/Vomiting Oxycodone HCl (Oxycodone) 5 mg PO Q4H PRN PRN Reason: Pain (moderate 4-6) Sodium Chloride (Saline Flush) 10 ml FLUSH ONETIME PRN PRN Reason: IV FLUSH Last Admin: 07/24/20 14:38 Dose: 10 ml Documented by: ABBY Temazepam (Restoril) 15 mg PO BEDTIME PRN PRN Reason: Sleep Assessment/Plan Comment:: The patient is a complex lady who presents with a number of different symptoms. The patient is anemic and her hemoglobin was 6.8 g/dL. She is received 2 units of packed red blood cells in the emergency department. CBC has been ordered. She also has leukocytosis that I think is the result of her strep throat. The patient also treated with amoxicillin and I cannot exclude a hemolytic type anemia from the amoxicillin. I placed the patient on a azithromycin 250 mg IV daily. The patient also has evidence of pancreatitis as her lipase is elevated at 2354 units. The patient will be kept n.p.o. for now. I have also ordered pain medications to help treat her abdominal pain. Ultrasound had been completed in the emergency department which ruled out cholelithiasis. The patient has denied alcohol. The patient also has a CRP which is elevated at 19.5 which is also indicative of Covid. She does have multiple electrolyte abnormalities which will also be replaced. I have ordered repeat laboratory testing for the morning. IV fluids consisting of normal saline at 120 mL liters per hour should also help to correct some of the electrolyte abnormalities. The patient's ALT and AST were normal and she does have requirements necessary for the use of Covid antivirals. I have elected to place the patient on SCDs for DVT prophylaxis due to his severe anemia. The patient has been encouraged to ambulate. Also of note the patient had mild cardiomegaly on chest x-ray. I have ordered a 2D echocardiogram to help rule out cardiomyopathy. 1. I spoke with Patient to provide information about convalescent plasma for her. 2. I offered them the Facts Sheet for Patients and Parents/Caregivers for COVID-19 convalescent plasma to read and review. 3. I stated that the therapy has been approved by the Emergency Use Authorization (EUA) process and not fully been FDA reviewed or approved. 4. I shared potential risk from the therapy including transmission of blood borne pathogens such as HIV and hepatitis C, allergic and transfusion related reactions, post-transfusion purpura. Additionally, theoretical risks including a phenomenon called anti-body dependent enhancement of infection such as seen in dengue fever or attenuation of an immune response that may make patients more susceptible to re-infection. 5. I discussed there are other potential treatment options that are currently not FDA approved to treat COVID-19. 6. Discussed with the patient that is not an exclusion for convalescent plasma treatment, but the therapy has not been fully evaluated in patients. 7. Offered the opportunity to ask questions and all questions were answered. 8. She voiced understanding and agreed to proceed with treatment for her. I spoke with her to provide information about Remdesvir for her. 2. I offered them the Facts Sheet for Patients and Parents/Caregivers for COVID-19 Remdesvir to read and review. 3. I stated that the therapy has been approved by the Emergency Use Authorization (EUA) process and not fully been FDA reviewed or approved. 4. The patient meets EUA requirements. 5. I shared that the drug may cause liver abnormalities and infusion related side effects. Additionally, other side effects are possible but not known as the drug has had limited studies. 6. I discussed there are other potential treatment options that are currently not FDA approved to treat COVID-19. Plasma treatment, but the therapy has not been fully evaluated in patients. 7. Discussed with the patient that is not an exclusion for Remdesvir treatment. 8. Offered the opportunity to ask questions and all questions were answered. 9. She voiced understanding and agreed to proceed with treatment for her. - Mortality Measure Prognosis:: Good
[2020-07-24] MEDS: Morphine 2 MG/ML SYRINGE IVPUSH PRN ×2 (19:47→23:44)
[2020-07-24] MEDS: NS + KCl 20mEq/L 1,000 ML IV SCH (21:16)
[2020-07-25] MEDS: Morphine 2 MG/ML SYRINGE IVPUSH PRN ×4 (05:17→14:26)
[2020-07-25] MEDS: NS + KCl 20mEq/L 1,000 ML IV SCH (05:30)
[2020-07-25] MEDS: Azithromycin 250 MG Tab PO SCH (08:40)
--- NOTE | 2020-07-25 16:10 | PCM.PN ---
- General Info Date of Service: 07/25/20 Admission Dx/Problem (Free Text): Admission Diagnosis/Problem Admission Diagnosis/Problem Anemia Subjective Update: Patient states that her abdomen is less tender. She also states that she is hungry. She had a bowel movement this morning. It was a greenish bowel movement. She continues to complain of right-sided neck pain behind her ear. She does have some dry throat when she swallows. She has been n.p.o. since admission. Functional Status: Reports: Pain Controlled - Review of Systems General: Reports: Fatigue HEENT: Reports: Sore Throat, Other (neck pain) Pulmonary: Reports: No Symptoms. Denies: Shortness of Breath, Cough Cardiovascular: Reports: No Symptoms Gastrointestinal: Reports: Abdominal Pain Musculoskeletal: Reports: No Symptoms Skin: Reports: No Symptoms - Patient Data Vitals - Most Recent: Last Vital Signs Temp 97.5 F 07/25/20 14:25 Pulse 106 H 07/24/20 18:10 Resp 23 H 07/25/20 14:25 BP 110/72 07/25/20 14:25 Pulse Ox 97 07/25/20 14:25 Weight - Most Recent: 95.572 kg I&O - Last 24 Hours: Intake & Output 07/25/20 07/25/20 07/25/20 06:59 14:59 22:59 Intake Total 1462 Output Total 1000 1800 Balance 462 -1800 Lab Results Last 24 Hours: Laboratory Results - last 24 hr 07/24/20 07/24/20 07/25/20 Range/Units 11:39 15:45 05:37 WBC 27.02 H (3.98-10.04) K/mm3 RBC 3.22 L (3.98-5.22) M/mm3 Hgb 8.7 L D (11.2-15.7) gm/dl Hct 26.1 L (34.1-44.9) % MCV 81.1 D (79.4-94.8) fl MCH 27.0 (25.6-32.2) pg MCHC 33.3 (32.2-35.5) g/dl RDW Std Deviation 38.8 (36.4-46.3) fL Plt Count 653 H D (182-369) K/mm3 MPV 10.1 (9.4-12.3) fl Neut % (Auto) 83.0 H (34.0-71.1) % Lymph % (Auto) 8.2 L (19.3-51.7) % [place] % (Auto) 2.7 L (4.7-12.5) % Eos % (Auto) 1.1 (0.7-5.8) Baso % (Auto) 0.2 (0.1-1.2) % Neut # (Auto) 22.42 H (1.56-6.13) K/mm3 Lymph # (Auto) 2.21 (1.18-3.74) K/mm3 [place] # (Auto) 0.74 H (0.24-0.36) K/mm3 Eos # (Auto) 0.31 (0.04-0.36) K/mm3 Baso # (Auto) 0.05 (0.01-0.08) K/mm3 Manual Slide Review Abnormal smear D-Dimer, Quantitative (0.19-0.50) mg/L Sodium (136-145) mEq/L Potassium (3.5-5.1) mEq/L Chloride (98-107) mEq/L Carbon Dioxide (21-32) mEq/L Anion Gap (5-15) BUN (7-18) mg/dL Creatinine (0.55-1.02) mg/dL Est Cr Clr Drug Dosing mL/min Estimated GFR (MDRD) (>60) mL/min BUN/Creatinine Ratio (14-18) Glucose (74-106) mg/dL Calcium (8.5-10.1) mg/dL Phosphorus (2.6-4.7) mg/dL Magnesium (1.8-2.4) mg/dl Total Bilirubin (0.2-1.0) mg/dL AST (15-37) U/L ALT (14-59) U/L Alkaline Phosphatase (46-116) U/L C-Reactive Protein (<1.0) mg/dL Total Protein (6.4-8.2) g/dl Albumin (3.4-5.0) g/dl Globulin gm/dL Albumin/Globulin Ratio (1-2) Lipase (73-393) U/L Urine Color Yellow (Yellow) Urine Appearance Slt cloudy H (Clear) Urine pH 6.0 (5.0-8.0) Ur Specific [place] 1.015 (1.005-1.030) Urine Protein Negative (Negative) Urine Glucose (UA) Negative (Negative) Urine Ketones Negative (Negative) Urine Occult Blood Negative (Negative) Urine Nitrite Negative (Negative) Urine Bilirubin 1+ H (Negative) Urine Urobilinogen 4.0 H (0.2-1.0) Ur Leukocyte Esterase Negative (Negative) Urine RBC 0-5 (0-5) /hpf Urine WBC 0-5 (0-5) /hpf Ur Squamous Epith Cells 0-5 (0-5) /hpf Amorphous Sediment Few H (NOT SEEN) /hpf Urine Bacteria Few (FEW) /hpf Urine Mucus Few (FEW) /hpf Blood Type A POSITIVE Gel Antibody Screen Negative Crossmatch See Detail 07/25/20 07/25/20 Range/Units 05:37 05:37 WBC (3.98-10.04) K/mm3 RBC (3.98-5.22) M/mm3 Hgb (11.2-15.7) gm/dl Hct (34.1-44.9) % MCV (79.4-94.8) fl MCH (25.6-32.2) pg MCHC (32.2-35.5) g/dl RDW Std Deviation (36.4-46.3) fL Plt Count (182-369) K/mm3 MPV (9.4-12.3) fl Neut % (Auto) (34.0-71.1) % Lymph % (Auto) (19.3-51.7) % [place] % (Auto) (4.7-12.5) % Eos % (Auto) (0.7-5.8) Baso % (Auto) (0.1-1.2) % Neut # (Auto) (1.56-6.13) K/mm3 Lymph # (Auto) (1.18-3.74) K/mm3 [place] # (Auto) (0.24-0.36) K/mm3 Eos # (Auto) (0.04-0.36) K/mm3 Baso # (Auto) (0.01-0.08) K/mm3 Manual Slide Review D-Dimer, Quantitative 5.86 H (0.19-0.50) mg/L Sodium 137 (136-145) mEq/L Potassium 3.7 (3.5-5.1) mEq/L Chloride 100 (98-107) mEq/L Carbon Dioxide 26 (21-32) mEq/L Anion Gap 14.7 (5-15) BUN 9 (7-18) mg/dL Creatinine 0.7 (0.55-1.02) mg/dL Est Cr Clr Drug Dosing 133.73 mL/min Estimated GFR (MDRD) > 60 (>60) mL/min BUN/Creatinine Ratio 12.9 L (14-18) Glucose 94 (74-106) mg/dL Calcium 7.6 L (8.5-10.1) mg/dL Phosphorus 2.2 L (2.6-4.7) mg/dL Magnesium 1.7 L (1.8-2.4) mg/dl Total Bilirubin 3.1 H (0.2-1.0) mg/dL AST 73 H (15-37) U/L ALT 69 H (14-59) U/L Alkaline Phosphatase 81 (46-116) U/L C-Reactive Protein 16.9 H* (<1.0) mg/dL Total Protein 7.0 (6.4-8.2) g/dl Albumin 1.8 L (3.4-5.0) g/dl Globulin 5.2 gm/dL Albumin/Globulin Ratio 0.4 L (1-2) Lipase 1510 H (73-393) U/L Urine Color (Yellow) Urine Appearance (Clear) Urine pH (5.0-8.0) Ur Specific [place] (1.005-1.030) Urine Protein (Negative) Urine Glucose (UA) (Negative) Urine Ketones (Negative) Urine Occult Blood (Negative) Urine Nitrite (Negative) Urine Bilirubin (Negative) Urine Urobilinogen (0.2-1.0) Ur Leukocyte Esterase (Negative) Urine RBC (0-5) /hpf Urine WBC (0-5) /hpf Ur Squamous Epith Cells (0-5) /hpf Amorphous Sediment (NOT SEEN) /hpf Urine Bacteria (FEW) /hpf Urine Mucus (FEW) /hpf Blood Type Gel Antibody Screen Crossmatch Edward Results Last 24 Hours: Microbiology 07/24/20 13:55 Aerobic Blood Culture - Preliminary Blood - Venous NO GROWTH AFTER 1 DAY Anaerobic Blood Culture - Preliminary NO GROWTH AFTER 1 DAY 07/24/20 14:08 Aerobic Blood Culture - Preliminary Blood - Venous - Lab Draw NO GROWTH AFTER 1 DAY Anaerobic Blood Culture - Preliminary NO GROWTH AFTER 1 DAY Med Orders - Current: Current Medications Acetaminophen (Tylenol) 650 mg PO Q4H PRN PRN Reason: Pain (Mild 1-3)/fever Azithromycin (Zithromax) 250 mg PO DAILY [facility] Last Admin: 07/25/20 08:40 Dose: 250 mg Documented by: Potassium Chloride 10 meq/ (Premix) 100 mls @ 100 mls/hr IV ASDIRECTED [facility] Stop: 07/28/20 13:44 Last Admin: 07/24/20 18:09 Dose: 100 mls/hr Documented by: Remdesivir 100 mg/ Sodium (Chloride) 100 mls @ 100 mls/hr IV Q24H [facility] Stop: 07/28/20 18:59 Morphine Sulfate (Morphine) 2 mg IVPUSH Q2H PRN PRN Reason: Pain (severe 7-10) Stop: 07/25/20 18:07 Last Admin: 07/25/20 14:26 Dose: 2 mg Documented by: Ondansetron HCl (Zofran) 4 mg IV Q4H PRN PRN Reason: Nausea/Vomiting Oxycodone HCl (Oxycodone) 5 mg PO Q4H PRN PRN Reason: Pain (moderate 4-6) Sodium Chloride (Saline Flush) 10 ml FLUSH ONETIME PRN PRN Reason: IV FLUSH Last Admin: 07/24/20 14:38 Dose: 10 ml Documented by: Temazepam (Restoril) 15 mg PO BEDTIME PRN PRN Reason: Sleep Discontinued Medications Diatrizoate Meglum/Diatrizoate Sod (Gastrografin 37%) 120 ml PO ONETIME ONE Stop: 07/24/20 13:12 Last Admin: 07/24/20 14:38 Dose: 60 ml Documented by: Diphenhydramine HCl (Benadryl) 50 mg IVPUSH ONETIME ONE Stop: 07/24/20 14:03 Last Admin: 07/24/20 14:12 Dose: 50 mg Documented by: Sodium Chloride (Normal Saline) 1,000 mls @ 150 mls/hr IV NOW STA Stop: 07/24/20 18:38 Last Admin: 07/24/20 12:15 Dose: 999 mls/hr Documented by: Sodium Chloride (Normal Saline) 1,000 mls @ 125 mls/hr IV ASDIRECTED [facility] Last Admin: 07/24/20 14:00 Dose: 125 mls/hr Documented by: Sodium Chloride (Normal Saline) 1,000 mls @ 125 mls/hr IV ASDIRECTED [facility] Remdesivir 200 mg/ Sodium (Chloride) 250 mls @ 250 mls/hr IV ONETIME ONE Stop: 07/24/20 18:03 Last Admin: 07/24/20 18:56 Dose: 250 mls/hr Documented by: Potassium Chloride/Sodium Chloride (Normal Saline With 20 Meq Kcl) 1,000 mls @ 125 mls/hr IV ASDIRECTED [facility] Last Admin: 07/25/20 05:30 Dose: 125 mls/hr Documented by: Iopamidol (Isovue-300 (61%)) 100 ml IVPUSH ONETIME ONE Stop: 07/24/20 13:12 Last Admin: 07/24/20 14:38 Dose: 100 ml Documented by: Ondansetron HCl (Zofran) 4 mg IVPUSH ONETIME ONE Stop: 07/24/20 12:00 Last Admin: 07/24/20 12:13 Dose: 4 mg Documented by: - Exam Quality Assessment: No: Supplemental Oxygen General: Alert, Oriented HEENT: Pupils Equal, Mucous Membr. Moist/Mark (Posterior pharynx is normal without erythema or exudate.) Neck: Supple, Other (Tenderness posterior to the sternocleidomastoid at the insertion just below the mastoid. No significant lymphadenopathy.) Lungs: Clear to Auscultation, Normal Respiratory Effort Cardiovascular: Regular Rate, Regular Rhythm, Murmurs (2 out of 6 systolic ejection murmur best heard in the left second intercostal space.) GI/Abdominal Exam: Normal Bowel Sounds, Soft, Non-Tender, No Distention Back Exam: Normal Inspection Extremities: Normal Inspection, Normal Range of Motion, Non-Tender, No Pedal Edema, Normal Capillary Refill Skin: Warm, Dry, Intact Neurological: No New Focal Deficit Psy/Mental Status: Alert, Normal Affect, Normal Mood Sepsis Event Note - Evaluation Sepsis Screening Result: Sepsis Risk - Focused Exam Vital Signs: Vital Signs Temp Resp BP BP Pulse Ox Pulse Ox 07/25/20 14:25 97.5 F 23 H 110/72 97 07/25/20 13:00 93 L 07/25/20 08:01 22 H 92 L 07/25/20 08:00 96.9 F 24 H 101/64 101/64 95 07/25/20 07:59 16 94 L 07/25/20 07:23 25 H 103/72 94 L 07/25/20 07:22 23 H 93 L 07/25/20 07:00 21 H 90 L 07/25/20 06:00 18 91 L 07/25/20 05:01 21 H 95 07/25/20 05:00 23 H 96/66 94 L 07/25/20 04:59 23 H 93 L 07/25/20 04:01 29 H 92 L 07/25/20 04:00 98.1 F 27 H 86/53 L 86/53 L 92 L 07/25/20 03:59 28 H 92 L - Problem List & Annotations (1) Anemia SNOMED Code(s): 135210226 Code(s): D64.9 - ANEMIA, UNSPECIFIED Status: Acute Current Visit: Yes Qualifiers: Anemia type: acquired or hereditary hemolytic anemia Hemolytic anemia type: acquired, autoimmune, 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 (2) COVID-19 SNOMED Code(s): 720428965 Code(s): U07.1 - COVID-19 Status: Acute Current Visit: Yes (3) Pancreatitis SNOMED Code(s): 42750429 Code(s): K85.90 - ACUTE PANCREATITIS WITHOUT NECROSIS OR INFECTION, UNSP Status: Acute Current Visit: Yes Qualifiers: Chronicity: acute Pancreatitis type: unspecified pancreatitis type Acute pancreatitis complication: no infection or necrosis Qualified Code(s): K85.90 - Acute pancreatitis without necrosis or infection, unspecified (4) Strep throat SNOMED Code(s): 39286884 Code(s): J02.0 - STREPTOCOCCAL PHARYNGITIS Status: Acute Priority: High Current Visit: Yes (5) Cardiomegaly SNOMED Code(s): 3932723 Code(s): I51.7 - CARDIOMEGALY Status: Chronic Priority: High Current Visit: Yes - Problem List Review Problem List Initiated/Reviewed/Updated: Yes - My Orders Last 24 Hours: My Active Orders 07/25/20 Dinner Clear Liquid Diet [DIET] - Plan Plan:: 07/24/2020 The patient is a complex lady who presents with a number of different symptoms. The patient is anemic and her hemoglobin was 6.8 g/dL. She is received 2 units of packed red blood cells in the emergency department. CBC has been ordered. She also has leukocytosis that I think is the result of her strep throat. The patient also treated with amoxicillin and I cannot exclude a hemolytic type anemia from the amoxicillin. I placed the patient on a azithromycin 250 mg IV daily. The patient also has evidence of pancreatitis as her lipase is elevated at 2354 units. The patient will be kept n.p.o. for now. I have also ordered pain medications to help treat her abdominal pain. Ultrasound had been completed in the emergency department which ruled out cholelithiasis. The patient has denied alcohol. The patient also has a CRP which is elevated at 19.5 which is also indicative of Covid. She does have multiple electrolyte abnormalities which will also be replaced. I have ordered repeat laboratory testing for the morning. IV fluids consisting of normal saline at 120 mL liters per hour should also help to correct some of the electrolyte abnormalities. The patient's ALT and AST were normal and she does have requirements necessary for the use of Covid antivirals. I have elected to place the patient on SCDs for DVT prophylaxis due to his severe anemia. The patient has been encouraged to ambulate. Also of note the patient had mild cardiomegaly on chest x-ray. I have ordered a 2D echocardiogram to help rule out cardiomyopathy. 1. I spoke with Patient to provide information about convalescent plasma for her. 2. I offered them the Facts Sheet for Patients and Parents/Caregivers for COVID-19 convalescent plasma to read and review. 3. I stated that the therapy has been approved by the Emergency Use Authorization (EUA) process and not fully been FDA reviewed or approved. 4. I shared potential risk from the therapy including transmission of blood borne pathogens such as HIV and hepatitis C, allergic and transfusion related reactions, post-transfusion purpura. Additionally, theoretical risks including a phenomenon called anti-body dependent enhancement of infection such as seen in dengue fever or attenuation of an immune response that may make patients more susceptible to re-infection. 5. I discussed there are other potential treatment options that are currently not FDA approved to treat COVID-19. 6. Discussed with the patient that is not an exclusion for convalescent plasma treatment, but the therapy has not been fully evaluated in patients. 7. Offered the opportunity to ask questions and all questions were answered. 8. She voiced understanding and agreed to proceed with treatment for her. I spoke with her to provide information about Remdesvir for her. 2. I offered them the Facts Sheet for Patients and Parents/Caregivers for COVID-19 Remdesvir to read and review. 3. I stated that the therapy has been approved by the Emergency Use Authorization (EUA) process and not fully been FDA reviewed or approved. 4. The patient meets EUA requirements. 5. I shared that the drug may cause liver abnormalities and infusion related side effects. Additionally, other side effects are possible but not known as the drug has had limited studies. 6. I discussed there are other potential treatment options that are currently not FDA approved to treat COVID-19. Plasma treatment, but the therapy has not been fully evaluated in patients. 7. Discussed with the patient that is not an exclusion for Remdesvir treatment. 8. Offered the opportunity to ask questions and all questions were answered. 9. She voiced understanding and agreed to proceed with treatment for her. 07/25/2020 Patient is doing better. She has less abdominal pain, she is off oxygen, her lipase has decreased to 1500, CRP is down to 16.9. Patient's hemoglobin is up to 8.7 after getting 2 units of packed red blood cells. White count is still significantly elevated at 27,000 and her platelets are 653. Pharmacologic anticoagulation for VTE prophylaxis has been held because of her severe anemia on presentation. She is can still continues to complain of epigastric pain. Patient has significant hyperbilirubinemia with bilirubin of 3.1 and elevated liver enzymes of AST 73 and ALT of 69. Her alkaline phosphatase is normal. Albumin is significantly low at 1.8. CT of the abdomen and ultrasound of the abdomen showed no inflammation of the pancreas, normal gallbladder, normal common bile duct, and normal liver. She continues to have sore throat and right sided neck pain just below her ear. This does make some concern for retroperitoneal abscess, but exam is fairly benign. White count still is elevated. Patient did not receive her convalescent plasma, and will not get it at this time because of not needing oxygen. She is also not on dexamethasone. CRP has improved. I question the patient's diagnosis of pancreatitis since the CT and ultrasound did not show any inflammation of the pancreas. It is possible that the lipase was increased for another unknown reason even possibly secondary to Covid. We will continue to treat like pancreatitis, but need to be very careful of fluid administration because of her Covid disease. Plan Get direct and indirect bilirubin, CRP, CMP, CBC, D-dimer, haptoglobin, LDH, magnesium, phosphorus, reticulocyte count, and procalcitonin in the morning Get stools for occult blood Start Rocephin 2 g daily and continue azithromycin If not improving tomorrow will consider CT scan of the neck. Start Protonix 40 mg IV every 12 hours Start clear liquid diet and stop IV fluids.
[2020-07-25] MEDS ORDERED: Sodium Chloride 0.9% 100 ML ONE (17:28)
[2020-07-25] MEDS: Acetaminophen 325 MG Tab PO PRN (17:35)
[2020-07-25] MEDS: cefTRIAXone 2 GM in Sodium Chloride 0.9% 100 ML IV SCH (17:36)
[2020-07-25] MEDS: oxyCODONE 5 MG Tab PO PRN (17:36)
[2020-07-25] MEDS: REMDESIVIR (EUA) 100 MG in Sodium Chloride 0.9% 100 ML IV SCH (17:44)
[2020-07-25] MEDS: Pantoprazole 40 MG Vial IVPUSH SCH (22:18)
[2020-07-26] MEDS: oxyCODONE 5 MG Tab PO PRN ×3 (00:03→20:16)
[2020-07-26] MEDS: Acetaminophen 325 MG Tab PO PRN (00:05)
[2020-07-26] MEDS ORDERED: Magnesium Sulfate/Water 4 GM in Premix Bag 1 BAG IV ONE (09:00)
[2020-07-26] MEDS ORDERED: Sodium Chloride 0.9% 250 ML IV SCH (09:00)
[2020-07-26] MEDS: Pantoprazole 40 MG Vial IVPUSH SCH ×2 (09:08→21:09)
[2020-07-26] MEDS: Azithromycin 250 MG Tab PO SCH (09:09)
[2020-07-26] MEDS: Enoxaparin 40 MG/0.4 ML Syringe SUBCUT SCH (10:56)
--- NOTE | 2020-07-26 12:54 | PCM.PN ---
- General Info Date of Service: 07/26/20 Admission Dx/Problem (Free Text): Admission Diagnosis/Problem Admission Diagnosis/Problem Anemia Subjective Update: Patient states that she is feeling better. Her abdomen is less tender and she is tolerating her diet of clear liquids well. She is requesting to have an increase in her diet. Echocardiogram showed a normal left ventricular ejection fraction with mild concentric left ventricular hypertrophy and mild biatrial dilatation. She continues on room air. Her neck pain is improved and she denies any difficulty swallowing. Functional Status: Reports: Pain Controlled - Review of Systems General: Reports: No Symptoms HEENT: Reports: No Symptoms Pulmonary: Reports: No Symptoms Cardiovascular: Reports: No Symptoms Gastrointestinal: Reports: Abdominal Pain (Improved) Musculoskeletal: Reports: No Symptoms Psychiatric: Reports: No Symptoms - Patient Data Vitals - Most Recent: Last Vital Signs Temp 97.2 F 07/26/20 09:15 Pulse 106 H 07/24/20 18:10 Resp 24 H 07/26/20 09:15 BP 109/78 07/26/20 09:15 Pulse Ox 95 07/26/20 09:15 Weight - Most Recent: 95.572 kg I&O - Last 24 Hours: Intake & Output 07/25/20 07/26/20 07/26/20 22:59 06:59 14:59 Intake Total 1230 1700 Output Total 2150 1000 Balance -920 700 Lab Results Last 24 Hours: Laboratory Results - last 24 hr 07/26/20 07/26/20 07/26/20 Range/Units 05:31 05:31 05:31 WBC 16.14 H (3.98-10.04) K/mm3 RBC 3.34 L (3.98-5.22) M/mm3 Hgb 9.1 L (11.2-15.7) gm/dl Hct 28.1 L (34.1-44.9) % MCV 84.1 D (79.4-94.8) fl MCH 27.2 (25.6-32.2) pg MCHC 32.4 (32.2-35.5) g/dl RDW Std Deviation 40.8 (36.4-46.3) fL Plt Count 613 H (182-369) K/mm3 MPV 9.8 (9.4-12.3) fl Neut % (Auto) 81.7 H (34.0-71.1) % Lymph % (Auto) 11.1 L (19.3-51.7) % [place] % (Auto) 3.3 L (4.7-12.5) % Eos % (Auto) 1.4 (0.7-5.8) Baso % (Auto) 0.2 (0.1-1.2) % Neut # (Auto) 13.18 H (1.56-6.13) K/mm3 Lymph # (Auto) 1.79 (1.18-3.74) K/mm3 [place] # (Auto) 0.54 H (0.24-0.36) K/mm3 Eos # (Auto) 0.23 (0.04-0.36) K/mm3 Baso # (Auto) 0.03 (0.01-0.08) K/mm3 Manual Slide Review Abnormal smear Percent Retic 6.84 H (0.50-1.70) % D-Dimer, Quantitative 4.83 H (0.19-0.50) mg/L Sodium 137 (136-145) mEq/L Potassium 4.1 (3.5-5.1) mEq/L Chloride 102 (98-107) mEq/L Carbon Dioxide 25 (21-32) mEq/L Anion Gap 14.1 (5-15) BUN 10 (7-18) mg/dL Creatinine 0.7 (0.55-1.02) mg/dL Est Cr Clr Drug Dosing 133.73 mL/min Estimated GFR (MDRD) > 60 (>60) mL/min BUN/Creatinine Ratio 14.3 (14-18) Glucose 89 (74-106) mg/dL Calcium 7.9 L (8.5-10.1) mg/dL Phosphorus 2.9 (2.6-4.7) mg/dL Magnesium 1.6 L (1.8-2.4) mg/dl Total Bilirubin 2.0 H (0.2-1.0) mg/dL Direct Bilirubin 1.70 H (0.0-0.2) mg/dl Indirect Bilirubin 0.30 AST 42 H (15-37) U/L ALT 52 (14-59) U/L Alkaline Phosphatase 76 (46-116) U/L Lactate Dehydrogenase 223 (81-234) U/L C-Reactive Protein 12.4 H* (<1.0) mg/dL Total Protein 6.8 (6.4-8.2) g/dl Albumin 1.8 L (3.4-5.0) g/dl Globulin 5.0 gm/dL Albumin/Globulin Ratio 0.4 L (1-2) Edward Results Last 24 Hours: Microbiology 07/25/20 21:00 Occult Blood - Final Stool / Feces 07/24/20 13:55 Aerobic Blood Culture - Preliminary Blood - Venous NO GROWTH AFTER 1 DAY Anaerobic Blood Culture - Preliminary NO GROWTH AFTER 1 DAY 07/24/20 14:08 Aerobic Blood Culture - Preliminary Blood - Venous - Lab Draw NO GROWTH AFTER 1 DAY Anaerobic Blood Culture - Preliminary NO GROWTH AFTER 1 DAY Med Orders - Current: Current Medications Acetaminophen (Tylenol) 650 mg PO Q4H PRN PRN Reason: Pain (Mild 1-3)/fever Last Admin: 07/26/20 00:05 Dose: 650 mg Documented by: Azithromycin (Zithromax) 250 mg PO DAILY [facility] Stop: 07/30/20 09:01 Last Admin: 07/26/20 09:09 Dose: 250 mg Documented by: Enoxaparin Sodium (Lovenox) 40 mg SUBCUT DAILY [facility] Last Admin: 07/26/20 10:56 Dose: 40 mg Documented by: Remdesivir 100 mg/ Sodium (Chloride) 100 mls @ 100 mls/hr IV Q24H [facility] Stop: 07/28/20 18:59 Last Admin: 07/25/20 17:44 Dose: 100 mls/hr Documented by: Ceftriaxone Sodium 2 gm/ (Sodium Chloride) 100 mls @ 200 mls/hr IV Q24H [facility] Stop: 07/29/20 17:29 Last Admin: 07/25/20 17:36 Dose: 200 mls/hr Documented by: Magnesium Sulfate 4 gm/ Premix 50 mls @ 12.5 mls/hr IV ONETIME ONE Stop: 07/26/20 12:59 Last Admin: 07/26/20 09:08 Dose: 12.5 mls/hr Documented by: Sodium Chloride (Normal Saline) 250 mls @ 20 mls/hr IV ASDIRECTED [facility] Last Admin: 07/26/20 09:40 Dose: 20 mls/hr Documented by: Ondansetron HCl (Zofran) 4 mg IV Q4H PRN PRN Reason: Nausea/Vomiting Oxycodone HCl (Oxycodone) 5 mg PO Q4H PRN PRN Reason: Pain (moderate 4-6) Last Admin: 07/26/20 05:27 Dose: 5 mg Documented by: Pantoprazole Sodium (Protonix Iv) 40 mg IVPUSH Q12H [facility] Last Admin: 07/26/20 09:08 Dose: 40 mg Documented by: Sodium Chloride (Saline Flush) 10 ml FLUSH ONETIME PRN PRN Reason: IV FLUSH Last Admin: 07/24/20 14:38 Dose: 10 ml Documented by: Temazepam (Restoril) 15 mg PO BEDTIME PRN PRN Reason: Sleep Discontinued Medications Diatrizoate Meglum/Diatrizoate Sod (Gastrografin 37%) 120 ml PO ONETIME ONE Stop: 07/24/20 13:12 Last Admin: 07/24/20 14:38 Dose: 60 ml Documented by: Diphenhydramine HCl (Benadryl) 50 mg IVPUSH ONETIME ONE Stop: 07/24/20 14:03 Last Admin: 07/24/20 14:12 Dose: 50 mg Documented by: Sodium Chloride (Normal Saline) 1,000 mls @ 150 mls/hr IV NOW STA Stop: 07/24/20 18:38 Last Admin: 07/24/20 12:15 Dose: 999 mls/hr Documented by: Potassium Chloride 10 meq/ (Premix) 100 mls @ 100 mls/hr IV ASDIRECTED [facility] Stop: 07/28/20 13:44 Last Admin: 07/24/20 18:09 Dose: 100 mls/hr Documented by: Sodium Chloride (Normal Saline) 1,000 mls @ 125 mls/hr IV ASDIRECTED [facility] Last Admin: 07/24/20 14:00 Dose: 125 mls/hr Documented by: Sodium Chloride (Normal Saline) 1,000 mls @ 125 mls/hr IV ASDIRECTED [facility] Remdesivir 200 mg/ Sodium (Chloride) 250 mls @ 250 mls/hr IV ONETIME ONE Stop: 07/24/20 18:03 Last Admin: 07/24/20 18:56 Dose: 250 mls/hr Documented by: Potassium Chloride/Sodium Chloride (Normal Saline With 20 Meq Kcl) 1,000 mls @ 125 mls/hr IV ASDIRECTED [facility] Last Admin: 07/25/20 05:30 Dose: 125 mls/hr Documented by: Sodium Chloride (Normal Saline) Confirm Administered Dose 100 mls @ as directed .ROUTE .STK-MED ONE Stop: 07/25/20 17:29 Last Admin: 07/25/20 17:36 Dose: Not Given Documented by: Iopamidol (Isovue-300 (61%)) 100 ml IVPUSH ONETIME ONE Stop: 07/24/20 13:12 Last Admin: 07/24/20 14:38 Dose: 100 ml Documented by: Morphine Sulfate (Morphine) 2 mg IVPUSH Q2H PRN PRN Reason: Pain (severe 7-10) Stop: 07/25/20 18:07 Last Admin: 07/25/20 14:26 Dose: 2 mg Documented by: Ondansetron HCl (Zofran) 4 mg IVPUSH ONETIME ONE Stop: 07/24/20 12:00 Last Admin: 07/24/20 12:13 Dose: 4 mg Documented by: - Exam Quality Assessment: No: Supplemental Oxygen General: Alert, Oriented HEENT: Pupils Equal, Mucous Membr. Moist/[place], Other (Decreased tenderness along the posterior cervical chain just below the mastoid on the right.) Lungs: Clear to Auscultation, Normal Respiratory Effort Cardiovascular: Regular Rate, Regular Rhythm GI/Abdominal Exam: Normal Bowel Sounds, Soft, No Distention, Tender (Mild epigastric tenderness) Extremities: Normal Inspection, No Pedal Edema, Normal Capillary Refill Skin: Warm, Dry, Intact Psy/Mental Status: Alert, Normal Affect, Normal Mood Sepsis Event Note - Evaluation Sepsis Screening Result: Severe Sepsis Risk - Focused Exam Vital Signs: Vital Signs Temp Resp BP Pulse Ox 07/26/20 09:15 97.2 F 24 H 109/78 95 07/26/20 04:00 97.8 F 19 113/81 95 - Problem List & Annotations (1) Anemia SNOMED Code(s): 256890813 Code(s): D64.9 - ANEMIA, UNSPECIFIED Status: Acute Current Visit: Yes Qualifiers: Anemia type: acquired or hereditary hemolytic anemia Hemolytic anemia type: acquired, autoimmune, 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 (2) COVID-19 SNOMED Code(s): 985379631 Code(s): U07.1 - COVID-19 Status: Acute Current Visit: Yes (3) Pancreatitis SNOMED Code(s): 57161838 Code(s): K85.90 - ACUTE PANCREATITIS WITHOUT NECROSIS OR INFECTION, UNSP Status: Acute Current Visit: Yes Qualifiers: Chronicity: acute Pancreatitis type: unspecified pancreatitis type Acute pancreatitis complication: no infection or necrosis Qualified Code(s): K85.90 - Acute pancreatitis without necrosis or infection, unspecified (4) Strep throat SNOMED Code(s): 40287342 Code(s): J02.0 - STREPTOCOCCAL PHARYNGITIS Status: Acute Priority: High Current Visit: Yes (5) Cardiomegaly SNOMED Code(s): 2728452 Code(s): I51.7 - CARDIOMEGALY Status: Chronic Priority: High Current Visit: Yes - Problem List Review Problem List Initiated/Reviewed/Updated: Yes - My Orders Last 24 Hours: My Active Orders 07/25/20 17:00 cefTRIAXone [Rocephin] 2 gm Sodium Chloride 0.9% [Normal Saline] 100 ml IV Q24H 07/25/20 21:00 Pantoprazole [ProTONIX IV] 40 mg IVPUSH Q12H 07/26/20 05:31 PROCALCITONIN [REF] AM 07/26/20 09:00 Magnesium Sulfate/Water [Magnesium Sulfate in Water Premix] 4 gm Premix Bag 1 bag IV ONETIME Sodium Chloride 0.9% [Normal Saline] 250 ml IV ASDIRECTED 07/26/20 10:15 Enoxaparin [Lovenox] 40 mg SUBCUT DAILY 07/26/20 Lunch Full Liquid Diet [DIET] 07/27/20 05:11 C-REACTIVE PROTEIN [CHEM] AM CBC WITH AUTO DIFF [HEME] AM CMP [COMPREHENSIVE METABOLIC PN,CMP] [CHEM] AM DD [D-DIMER QUANTITATIVE] [COAG] AM MAGNESIUM [CHEM] AM PHOSPHORUS [CHEM] AM - Plan Plan:: 07/24/2020 The patient is a complex lady who presents with a number of different symptoms. The patient is anemic and her hemoglobin was 6.8 g/dL. She is received 2 units of packed red blood cells in the emergency department. CBC has been ordered. She also has leukocytosis that I think is the result of her strep throat. The patient also treated with amoxicillin and I cannot exclude a hemolytic type anemia from the amoxicillin. I placed the patient on a azithromycin 250 mg IV daily. The patient also has evidence of pancreatitis as her lipase is elevated at 2354 units. The patient will be kept n.p.o. for now. I have also ordered pain medications to help treat her abdominal pain. Ultrasound had been completed in the emergency department which ruled out cholelithiasis. The patient has denied alcohol. The patient also has a CRP which is elevated at 19.5 which is also indicative of Covid. She does have multiple electrolyte abnormalities which will also be replaced. I have ordered repeat laboratory testing for the morning. IV fluids consisting of normal saline at 120 mL liters per hour should also help to correct some of the electrolyte abnormalities. The patient's ALT and AST were normal and she does have requirements necessary for the use of Covid antivirals. I have elected to place the patient on SCDs for DVT prophylaxis due to his severe anemia. The patient has been encouraged to ambulate. Also of note the patient had mild cardiomegaly on chest x-ray. I have ordered a 2D echocardiogram to help rule out cardiomyopathy. 1. I spoke with Patient to provide information about convalescent plasma for her. 2. I offered them the Facts Sheet for Patients and Parents/Caregivers for COVID-19 convalescent plasma to read and review. 3. I stated that the therapy has been approved by the Emergency Use Authorization (EUA) process and not fully been FDA reviewed or approved. 4. I shared potential risk from the therapy including transmission of blood borne pathogens such as HIV and hepatitis C, allergic and transfusion related reactions, post-transfusion purpura. Additionally, theoretical risks including a phenomenon called anti-body dependent enhancement of infection such as seen in dengue fever or attenuation of an immune response that may make patients more susceptible to re-infection. 5. I discussed there are other potential treatment options that are currently not FDA approved to treat COVID-19. 6. Discussed with the patient that is not an exclusion for convalescent plasma treatment, but the therapy has not been fully evaluated in patients. 7. Offered the opportunity to ask questions and all questions were answered. 8. She voiced understanding and agreed to proceed with treatment for her. I spoke with her to provide information about Remdesvir for her. 2. I offered them the Facts Sheet for Patients and Parents/Caregivers for COVID-19 Remdesvir to read and review. 3. I stated that the therapy has been approved by the Emergency Use Authorization (EUA) process and not fully been FDA reviewed or approved. 4. The patient meets EUA requirements. 5. I shared that the drug may cause liver abnormalities and infusion related side effects. Additionally, other side effects are possible but not known as the drug has had limited studies. 6. I discussed there are other potential treatment options that are currently not FDA approved to treat COVID-19. Plasma treatment, but the therapy has not been fully evaluated in patients. 7. Discussed with the patient that is not an exclusion for Remdesvir treatment. 8. Offered the opportunity to ask questions and all questions were answered. 9. She voiced understanding and agreed to proceed with treatment for her. 07/25/2020 Patient is doing better. She has less abdominal pain, she is off oxygen, her lipase has decreased to 1500, CRP is down to 16.9. Patient's hemoglobin is up to 8.7 after getting 2 units of packed red blood cells. White count is still significantly elevated at 27,000 and her platelets are 653. Pharmacologic anticoagulation for VTE prophylaxis has been held because of her severe anemia on presentation. She is can still continues to complain of epigastric pain. Patient has significant hyperbilirubinemia with bilirubin of 3.1 and elevated liver enzymes of AST 73 and ALT of 69. Her alkaline phosphatase is normal. Albumin is significantly low at 1.8. CT of the abdomen and ultrasound of the abdomen showed no inflammation of the pancreas, normal gallbladder, normal common bile duct, and normal liver. She continues to have sore throat and right sided neck pain just below her ear. This does make some concern for retroperitoneal abscess, but exam is fairly benign. White count still is elevated. Patient did not receive her convalescent plasma, and will not get it at this time because of not needing oxygen. She is also not on dexamethasone. CRP has improved. I question the patient's diagnosis of pancreatitis since the CT and ultrasound did not show any inflammation of the pancreas. It is possible that the lipase was increased for another unknown reason even possibly secondary to Covid. We will continue to treat like pancreatitis, but need to be very careful of fluid administration because of her Covid disease. Plan Get direct and indirect bilirubin, CRP, CMP, CBC, D-dimer, haptoglobin, LDH, magnesium, phosphorus, reticulocyte count, and procalcitonin in the morning Get stools for occult blood Start Rocephin 2 g daily and continue azithromycin If not improving tomorrow will consider CT scan of the neck. Start Protonix 40 mg IV every 12 hours Start clear liquid diet and stop IV fluids. 07/26/2020 She continues to improve. Abdominal pain has decreased and she is tolerating her diet. White count did decrease to 16,000 today and her bilirubin came down to 2.0 with a direct bilirubin of 1.7. LDH was normal, but reticulocytes were increased at 6.8%. Unsure if this is not due to transfusion and having an increase in iron for red blood cell production. Haptoglobin is not available. This may well have been due to hemolytic anemia from amoxicillin, but she is tolerating Rocephin with a maintained hemoglobin at 9.1. Patient should continue to improve and hopefully will be able to discharge in 1 to 2 days.
[2020-07-26] MEDS: cefTRIAXone 2 GM in Sodium Chloride 0.9% 100 ML IV SCH (17:29)
[2020-07-26] MEDS: REMDESIVIR (EUA) 100 MG in Sodium Chloride 0.9% 100 ML IV SCH (17:33)
[2020-07-27] MEDS: Enoxaparin 40 MG/0.4 ML Syringe SUBCUT SCH (09:10)
[2020-07-27] MEDS: Azithromycin 250 MG Tab PO SCH (09:10)
[2020-07-27] MEDS: Pantoprazole 40 MG Vial IVPUSH SCH ×2 (09:10→20:40)
--- NOTE | 2020-07-27 09:13 | PCM.PN ---
- General Info Date of Service: 07/27/20 Admission Dx/Problem (Free Text): Admission Diagnosis/Problem Admission Diagnosis/Problem Anemia Subjective Update: The patient is a 29-year-old lady who was admitted by me on July 24, 2020 primarily due to COVID-19 and severe anemia requiring transfusion. It was thought that the patient's anemia was likely secondary to hemolytic action of amoxicillin. Patient today says that she is feeling much better. She has not r equired oxygen. She has been tolerating diet. Functional Status: Reports: Pain Controlled, Tolerating Diet - Review of Systems General: Reports: No Symptoms HEENT: Reports: No Symptoms Pulmonary: Reports: No Symptoms Cardiovascular: Reports: No Symptoms Gastrointestinal: Reports: No Symptoms Genitourinary: Reports: No Symptoms Musculoskeletal: Reports: No Symptoms Skin: Reports: No Symptoms Neurological: Reports: No Symptoms Psychiatric: Reports: No Symptoms - Patient Data Vitals - Most Recent: Last Vital Signs Temp 36.8 C 07/27/20 03:54 Pulse 97 07/27/20 03:54 Resp 22 H 07/27/20 03:54 BP 103/70 07/27/20 03:54 Pulse Ox 96 07/27/20 03:54 Weight - Most Recent: 95.056 kg I&O - Last 24 Hours: Intake & Output 07/26/20 07/27/20 07/27/20 22:59 06:59 14:59 Intake Total 2760 1335 Output Total 1900 800 Balance 860 535 Lab Results Last 24 Hours: Laboratory Results - last 24 hr 07/26/20 07/27/20 07/27/20 Range/Units 05:31 03:50 03:50 WBC 10.14 H (3.98-10.04) K/mm3 RBC 3.19 L (3.98-5.22) M/mm3 Hgb 8.6 L (11.2-15.7) gm/dl Hct 27.1 L (34.1-44.9) % MCV 85.0 (79.4-94.8) fl MCH 27.0 (25.6-32.2) pg MCHC 31.7 L (32.2-35.5) g/dl RDW Std Deviation 42.6 (36.4-46.3) fL Plt Count 611 H (182-369) K/mm3 MPV 9.5 (9.4-12.3) fl Neut % (Auto) 80.1 H (34.0-71.1) % Lymph % (Auto) 12.7 L (19.3-51.7) % [place] % (Auto) 4.8 (4.7-12.5) % Eos % (Auto) 1.2 (0.7-5.8) Baso % (Auto) 0.1 (0.1-1.2) % Neut # (Auto) 8.12 H (1.56-6.13) K/mm3 Lymph # (Auto) 1.29 (1.18-3.74) K/mm3 [place] # (Auto) 0.49 H (0.24-0.36) K/mm3 Eos # (Auto) 0.12 (0.04-0.36) K/mm3 Baso # (Auto) 0.01 (0.01-0.08) K/mm3 Manual Slide Review Abnormal smear D-Dimer, Quantitative 4.68 H (0.19-0.50) mg/L Sodium (136-145) mEq/L Potassium (3.5-5.1) mEq/L Chloride (98-107) mEq/L Carbon Dioxide (21-32) mEq/L Anion Gap (5-15) BUN (7-18) mg/dL Creatinine (0.55-1.02) mg/dL Est Cr Clr Drug Dosing mL/min Estimated GFR (MDRD) (>60) mL/min BUN/Creatinine Ratio (14-18) Glucose (74-106) mg/dL Calcium (8.5-10.1) mg/dL Phosphorus (2.6-4.7) mg/dL Magnesium (1.8-2.4) mg/dl Total Bilirubin (0.2-1.0) mg/dL AST (15-37) U/L ALT (14-59) U/L Alkaline Phosphatase (46-116) U/L C-Reactive Protein (<1.0) mg/dL Total Protein (6.4-8.2) g/dl Albumin (3.4-5.0) g/dl Globulin gm/dL Albumin/Globulin Ratio (1-2) Procalcitonin 5.92 H (<0.10) ng/mL 10/17/20 Range/Units 03:50 WBC (3.98-10.04) K/mm3 RBC (3.98-5.22) M/mm3 Hgb (11.2-15.7) gm/dl Hct (34.1-44.9) % MCV (79.4-94.8) fl MCH (25.6-32.2) pg MCHC (32.2-35.5) g/dl RDW Std Deviation (36.4-46.3) fL Plt Count (182-369) K/mm3 MPV (9.4-12.3) fl Neut % (Auto) (34.0-71.1) % Lymph % (Auto) (19.3-51.7) % [place] % (Auto) (4.7-12.5) % Eos % (Auto) (0.7-5.8) Baso % (Auto) (0.1-1.2) % Neut # (Auto) (1.56-6.13) K/mm3 Lymph # (Auto) (1.18-3.74) K/mm3 [place] # (Auto) (0.24-0.36) K/mm3 Eos # (Auto) (0.04-0.36) K/mm3 Baso # (Auto) (0.01-0.08) K/mm3 Manual Slide Review D-Dimer, Quantitative (0.19-0.50) mg/L Sodium 137 (136-145) mEq/L Potassium 3.8 (3.5-5.1) mEq/L Chloride 103 (98-107) mEq/L Carbon Dioxide 24 (21-32) mEq/L Anion Gap 13.8 (5-15) BUN 10 (7-18) mg/dL Creatinine 0.8 (0.55-1.02) mg/dL Est Cr Clr Drug Dosing 117.02 mL/min Estimated GFR (MDRD) > 60 (>60) mL/min BUN/Creatinine Ratio 12.5 L (14-18) Glucose 98 (74-106) mg/dL Calcium 8.1 L (8.5-10.1) mg/dL Phosphorus 3.1 (2.6-4.7) mg/dL Magnesium 1.5 L (1.8-2.4) mg/dl Total Bilirubin 1.6 H (0.2-1.0) mg/dL AST 32 (15-37) U/L ALT 43 (14-59) U/L Alkaline Phosphatase 74 (46-116) U/L C-Reactive Protein 7.4 H* (<1.0) mg/dL Total Protein 6.5 (6.4-8.2) g/dl Albumin 1.8 L (3.4-5.0) g/dl Globulin 4.7 gm/dL Albumin/Globulin Ratio 0.4 L (1-2) Procalcitonin (<0.10) ng/mL Edward Results Last 24 Hours: Microbiology 07/24/20 13:55 Aerobic Blood Culture - Preliminary Blood - Venous NO GROWTH AFTER 2 DAYS Anaerobic Blood Culture - Preliminary NO GROWTH AFTER 2 DAYS 07/24/20 14:08 Aerobic Blood Culture - Preliminary Blood - Venous - Lab Draw NO GROWTH AFTER 2 DAYS Anaerobic Blood Culture - Preliminary NO GROWTH AFTER 2 DAYS Med Orders - Current: Current Medications Acetaminophen (Tylenol) 650 mg PO Q4H PRN PRN Reason: Pain (Mild 1-3)/fever Last Admin: 07/26/20 00:05 Dose: 650 mg Documented by: Azithromycin (Zithromax) 250 mg PO DAILY [facility] Stop: 07/30/20 09:01 Last Admin: 07/27/20 09:10 Dose: 250 mg Documented by: Enoxaparin Sodium (Lovenox) 40 mg SUBCUT DAILY [facility] Last Admin: 07/27/20 09:10 Dose: 40 mg Documented by: Remdesivir 100 mg/ Sodium (Chloride) 100 mls @ 100 mls/hr IV Q24H [facility] Stop: 07/28/20 18:59 Last Admin: 07/26/20 17:33 Dose: 100 mls/hr Documented by: Ceftriaxone Sodium 2 gm/ (Sodium Chloride) 100 mls @ 200 mls/hr IV Q24H [facility] Stop: 07/29/20 17:29 Last Admin: 07/26/20 17:29 Dose: 200 mls/hr Documented by: Sodium Chloride (Normal Saline) 250 mls @ 20 mls/hr IV ASDIRECTED [facility] Last Admin: 07/26/20 09:40 Dose: 20 mls/hr Documented by: Ondansetron HCl (Zofran) 4 mg IV Q4H PRN PRN Reason: Nausea/Vomiting Oxycodone HCl (Oxycodone) 5 mg PO Q4H PRN PRN Reason: Pain (moderate 4-6) Last Admin: 07/26/20 20:16 Dose: 5 mg Documented by: Pantoprazole Sodium (Protonix Iv) 40 mg IVPUSH Q12H [facility] Last Admin: 07/27/20 09:10 Dose: 40 mg Documented by: Sodium Chloride (Saline Flush) 10 ml FLUSH ONETIME PRN PRN Reason: IV FLUSH Last Admin: 07/24/20 14:38 Dose: 10 ml Documented by: Temazepam (Restoril) 15 mg PO BEDTIME PRN PRN Reason: Sleep Discontinued Medications Diatrizoate Meglum/Diatrizoate Sod (Gastrografin 37%) 120 ml PO ONETIME ONE Stop: 07/24/20 13:12 Last Admin: 07/24/20 14:38 Dose: 60 ml Documented by: Diphenhydramine HCl (Benadryl) 50 mg IVPUSH ONETIME ONE Stop: 07/24/20 14:03 Last Admin: 07/24/20 14:12 Dose: 50 mg Documented by: Sodium Chloride (Normal Saline) 1,000 mls @ 150 mls/hr IV NOW STA Stop: 07/24/20 18:38 Last Admin: 07/24/20 12:15 Dose: 999 mls/hr Documented by: Potassium Chloride 10 meq/ (Premix) 100 mls @ 100 mls/hr IV ASDIRECTED [facility] Stop: 07/28/20 13:44 Last Admin: 07/24/20 18:09 Dose: 100 mls/hr Documented by: Sodium Chloride (Normal Saline) 1,000 mls @ 125 mls/hr IV ASDIRECTED [facility] Last Admin: 07/24/20 14:00 Dose: 125 mls/hr Documented by: Sodium Chloride (Normal Saline) 1,000 mls @ 125 mls/hr IV ASDIRECTED [facility] Remdesivir 200 mg/ Sodium (Chloride) 250 mls @ 250 mls/hr IV ONETIME ONE Stop: 07/24/20 18:03 Last Admin: 07/24/20 18:56 Dose: 250 mls/hr Documented by: Potassium Chloride/Sodium Chloride (Normal Saline With 20 Meq Kcl) 1,000 mls @ 125 mls/hr IV ASDIRECTED [facility] Last Admin: 07/25/20 05:30 Dose: 125 mls/hr Documented by: Sodium Chloride (Normal Saline) Confirm Administered Dose 100 mls @ as directed .ROUTE .STK-MED ONE Stop: 07/25/20 17:29 Last Admin: 07/25/20 17:36 Dose: Not Given Documented by: Magnesium Sulfate 4 gm/ Premix 50 mls @ 12.5 mls/hr IV ONETIME ONE Stop: 07/26/20 12:59 Last Admin: 07/26/20 09:08 Dose: 12.5 mls/hr Documented by: Iopamidol (Isovue-300 (61%)) 100 ml IVPUSH ONETIME ONE Stop: 07/24/20 13:12 Last Admin: 07/24/20 14:38 Dose: 100 ml Documented by: Morphine Sulfate (Morphine) 2 mg IVPUSH Q2H PRN PRN Reason: Pain (severe 7-10) Stop: 07/25/20 18:07 Last Admin: 07/25/20 14:26 Dose: 2 mg Documented by: Ondansetron HCl (Zofran) 4 mg IVPUSH ONETIME ONE Stop: 07/24/20 12:00 Last Admin: 07/24/20 12:13 Dose: 4 mg Documented by: - Exam Quality Assessment: No: Supplemental Oxygen General: Alert, Oriented, Cooperative, No Acute Distress HEENT: Pupils Equal, Pupils Reactive, EOMI Neck: Supple, Trachea Midline Lungs: Clear to Auscultation, Normal Respiratory Effort Cardiovascular: Regular Rate, Regular Rhythm GI/Abdominal Exam: Normal Bowel Sounds, Soft, No Distention (Female) Exam: Deferred Back Exam: Normal Inspection, Full Range of Motion Extremities: Normal Inspection, Normal Range of Motion, No Pedal Edema Skin: Warm, Dry, Intact Neurological: No New Focal Deficit Psy/Mental Status: Alert, Normal Affect Sepsis Event Note - Evaluation Sepsis Screening Result: Sepsis Risk - Focused Exam Vital Signs: Vital Signs Temp Pulse Resp BP Pulse Ox 07/27/20 03:54 36.8 C 97 22 H 103/70 96 - Problem List & Annotations (1) COVID-19 SNOMED Code(s): 135178337 Code(s): U07.1 - COVID-19 Status: Acute Current Visit: Yes (2) Anemia SNOMED Code(s): 720008369 Code(s): D64.9 - ANEMIA, UNSPECIFIED Status: Acute Current Visit: Yes Qualifiers: Anemia type: acquired or hereditary hemolytic anemia Hemolytic anemia type: acquired, autoimmune, 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 (3) Cardiomegaly SNOMED Code(s): 0203884 Code(s): I51.7 - CARDIOMEGALY Status: Chronic Priority: High Current Visit: Yes (4) Hypokalemia SNOMED Code(s): 15483388 Code(s): E87.6 - HYPOKALEMIA Status: Acute Current Visit: Yes (5) Pancreatitis SNOMED Code(s): 76825470 Code(s): K85.90 - ACUTE PANCREATITIS WITHOUT NECROSIS OR INFECTION, UNSP Status: Acute Current Visit: Yes Qualifiers: Chronicity: acute Pancreatitis type: unspecified pancreatitis type Acute pancreatitis complication: no infection or necrosis Qualified Code(s): K85.90 - Acute pancreatitis without necrosis or infection, unspecified (6) Strep throat SNOMED Code(s): 19695380 Code(s): J02.0 - STREPTOCOCCAL PHARYNGITIS Status: Acute Priority: High Current Visit: Yes - Problem List Review Problem List Initiated/Reviewed/Updated: Yes - Plan Plan:: 07/24/2020 The patient is a complex lady who presents with a number of different symptoms. The patient is anemic and her hemoglobin was 6.8 g/dL. She is received 2 units of packed red blood cells in the emergency department. CBC has been ordered. She also has leukocytosis that I think is the result of her strep throat. The patient also treated with amoxicillin and I cannot exclude a hemolytic type anemia from the amoxicillin. I placed the patient on a azithromycin 250 mg IV daily. The patient also has evidence of pancreatitis as her lipase is elevated at 2354 units. The patient will be kept n.p.o. for now. I have also ordered pain medications to help treat her abdominal pain. Ultrasound had been completed in the emergency department which ruled out cholelithiasis. The patient has denied alcohol. The patient also has a CRP which is elevated at 19.5 which is also indicative of Covid. She does have multiple electrolyte abnormalities which will also be replaced. I have ordered repeat laboratory testing for the morning. IV fluids consisting of normal saline at 120 mL liters per hour should also help to correct some of the electrolyte abnormalities. The patient's ALT and AST were normal and she does have requirements necessary for the use of Covid antivirals. I have elected to place the patient on SCDs for DVT prophylaxis due to his severe anemia. The patient has been encouraged to ambulate. Also of note the patient had mild cardiomegaly on chest x-ray. I have ordered a 2D echocardiogram to help rule out cardiomyopathy. 1. I spoke with Patient to provide information about convalescent plasma for her. 2. I offered them the Facts Sheet for Patients and Parents/Caregivers for COVID-19 convalescent plasma to read and review. 3. I stated that the therapy has been approved by the Emergency Use Authorization (EUA) process and not fully been FDA reviewed or approved. 4. I shared potential risk from the therapy including transmission of blood borne pathogens such as HIV and hepatitis C, allergic and transfusion related reactions, post-transfusion purpura. Additionally, theoretical risks including a phenomenon called anti-body dependent enhancement of infection such as seen in dengue fever or attenuation of an immune response that may make patients more susceptible to re-infection. 5. I discussed there are other potential treatment options that are currently not FDA approved to treat COVID-19. 6. Discussed with the patient that is not an exclusion for convalescent plasma treatment, but the therapy has not been fully evaluated in patients. 7. Offered the opportunity to ask questions and all questions were answered. 8. She voiced understanding and agreed to proceed with treatment for her. I spoke with her to provide information about Remdesvir for her. 2. I offered them the Facts Sheet for Patients and Parents/Caregivers for COVID-19 Remdesvir to read and review. 3. I stated that the therapy has been approved by the Emergency Use Authorization (EUA) process and not fully been FDA reviewed or approved. 4. The patient meets EUA requirements. 5. I shared that the drug may cause liver abnormalities and infusion related side effects. Additionally, other side effects are possible but not known as the drug has had limited studies. 6. I discussed there are other potential treatment options that are currently not FDA approved to treat COVID-19. Plasma treatment, but the therapy has not been fully evaluated in patients. 7. Discussed with the patient that is not an exclusion for Remdesvir treatment. 8. Offered the opportunity to ask questions and all questions were answered. 9. She voiced understanding and agreed to proceed with treatment for her. 07/25/2020 Patient is doing better. She has less abdominal pain, she is off oxygen, her lipase has decreased to 1500, CRP is down to 16.9. Patient's hemoglobin is up to 8.7 after getting 2 units of packed red blood cells. White count is still significantly elevated at 27,000 and her platelets are 653. Pharmacologic anticoagulation for VTE prophylaxis has been held because of her severe anemia on presentation. She is can still continues to complain of epigastric pain. Patient has significant hyperbilirubinemia with bilirubin of 3.1 and elevated liver enzymes of AST 73 and ALT of 69. Her alkaline phosphatase is normal. Albumin is significantly low at 1.8. CT of the abdomen and ultrasound of the abdomen showed no inflammation of the pancreas, normal gallbladder, normal common bile duct, and normal liver. She continues to have sore throat and right sided neck pain just below her ear. This does make some concern for retroperitoneal abscess, but exam is fairly benign. White count still is elevated. Patient did not receive her convalescent plasma, and will not get it at this time because of not needing oxygen. She is also not on dexamethasone. CRP has improved. I question the patient's diagnosis of pancreatitis since the CT and ultrasound did not show any inflammation of the pancreas. It is possible that the lipase was increased for another unknown reason even possibly secondary to Covid. We will continue to treat like pancreatitis, but need to be very careful of fluid administration because of her Covid disease. Plan Get direct and indirect bilirubin, CRP, CMP, CBC, D-dimer, haptoglobin, LDH, magnesium, phosphorus, reticulocyte count, and procalcitonin in the morning Get stools for occult blood Start Rocephin 2 g daily and continue azithromycin If not improving tomorrow will consider CT scan of the neck. Start Protonix 40 mg IV every 12 hours Start clear liquid diet and stop IV fluids. 07/26/2020 She continues to improve. Abdominal pain has decreased and she is tolerating her diet. White count did decrease to 16,000 today and her bilirubin came down to 2.0 with a direct bilirubin of 1.7. LDH was normal, but reticulocytes were increased at 6.8%. Unsure if this is not due to transfusion and having an increase in iron for red blood cell production. Haptoglobin is not available. This may well have been due to hemolytic anemia from amoxicillin, but she is tolerating Rocephin with a maintained hemoglobin at 9.1. Patient should continue to improve and hopefully will be able to discharge in 1 to 2 days. 07/27/2020 Continues to improve. She will likely be appropriate for discharge in 1 to 2 days. The patient also has an elevated D-dimer and she will likely need to be on Xarelto for 31 days after discharge for DVT and VTE prophylaxis. Patient is still anemic and CBC has been ordered for the morning. Patient has been encouraged to ambulate. She has diet as tolerated. Patient has been tolerating current antibiotic that she has been placed on for her previously noted strep throat. This will be continued.
[2020-07-27] MEDS: cefTRIAXone 2 GM in Sodium Chloride 0.9% 100 ML IV SCH (17:08)
[2020-07-27] MEDS: REMDESIVIR (EUA) 100 MG in Sodium Chloride 0.9% 100 ML IV SCH (17:08)
[2020-07-28] MEDS: Enoxaparin 40 MG/0.4 ML Syringe SUBCUT SCH (08:07)
[2020-07-28] MEDS: Azithromycin 250 MG Tab PO SCH (08:07)
[2020-07-28] MEDS: Pantoprazole 40 MG Vial IVPUSH SCH ×2 (08:07→20:02)
--- NOTE | 2020-07-28 11:06 | PCM.PN ---
- General Info Date of Service: 07/28/20 Admission Dx/Problem (Free Text): Admission Diagnosis/Problem Admission Diagnosis/Problem Anemia Subjective Update: The patient is a 29-year-old lady who was admitted to acute hospitalization on July 24, 2020. This was due to COVID-19 as well as severe anemia requiring transfusion. The patient says today that she is doing better. She is not on oxygen. She says that she has been tolerating her diet. She has no other complaints today. Functional Status: Reports: Pain Controlled, Tolerating Diet - Review of Systems General: Reports: Weakness HEENT: Reports: No Symptoms Pulmonary: Reports: No Symptoms Cardiovascular: Reports: No Symptoms Gastrointestinal: Reports: No Symptoms Genitourinary: Reports: No Symptoms Musculoskeletal: Reports: No Symptoms Skin: Reports: No Symptoms Neurological: Reports: No Symptoms Psychiatric: Reports: No Symptoms - Patient Data Vitals - Most Recent: Last Vital Signs Temp 36.1 C 07/28/20 08:14 Pulse 85 07/28/20 08:14 Resp 20 07/28/20 08:14 BP 109/79 07/28/20 08:14 Pulse Ox 99 07/28/20 08:14 Weight - Most Recent: 93.525 kg I&O - Last 24 Hours: Intake & Output 07/27/20 07/28/20 07/28/20 22:59 06:59 14:59 Intake Total 1680 1000 Output Total 1700 Balance 1680 -700 Lab Results Last 24 Hours: Laboratory Results - last 24 hr 07/28/20 07/28/20 07/28/20 Range/Units 04:16 04:16 04:16 WBC 8.06 (3.98-10.04) K/mm3 RBC 3.26 L (3.98-5.22) M/mm3 Hgb 8.9 L (11.2-15.7) gm/dl Hct 28.3 L (34.1-44.9) % MCV 86.8 (79.4-94.8) fl MCH 27.3 (25.6-32.2) pg MCHC 31.4 L (32.2-35.5) g/dl RDW Std Deviation 45.8 (36.4-46.3) fL Plt Count 647 H (182-369) K/mm3 MPV 9.7 (9.4-12.3) fl Neut % (Auto) 76.0 H (34.0-71.1) % Lymph % (Auto) 15.5 L (19.3-51.7) % [place] % (Auto) 5.8 (4.7-12.5) % Eos % (Auto) 1.7 (0.7-5.8) Baso % (Auto) 0.4 (0.1-1.2) % Neut # (Auto) 6.12 (1.56-6.13) K/mm3 Lymph # (Auto) 1.25 (1.18-3.74) K/mm3 [place] # (Auto) 0.47 H (0.24-0.36) K/mm3 Eos # (Auto) 0.14 (0.04-0.36) K/mm3 Baso # (Auto) 0.03 (0.01-0.08) K/mm3 Manual Slide Review Abnormal smear D-Dimer, Quantitative 4.79 H (0.19-0.50) mg/L Sodium (136-145) mEq/L Potassium (3.5-5.1) mEq/L Chloride (98-107) mEq/L Carbon Dioxide (21-32) mEq/L Anion Gap (5-15) BUN (7-18) mg/dL Creatinine (0.55-1.02) mg/dL Est Cr Clr Drug Dosing mL/min Estimated GFR (MDRD) (>60) mL/min BUN/Creatinine Ratio (14-18) Glucose (74-106) mg/dL Calcium (8.5-10.1) mg/dL C-Reactive Protein (<1.0) mg/dL Lipase (73-393) U/L Procalcitonin 2.67 H (<0.10) ng/mL 07/28/20 07/28/20 Range/Units 04:16 04:16 WBC (3.98-10.04) K/mm3 RBC (3.98-5.22) M/mm3 Hgb (11.2-15.7) gm/dl Hct (34.1-44.9) % MCV (79.4-94.8) fl MCH (25.6-32.2) pg MCHC (32.2-35.5) g/dl RDW Std Deviation (36.4-46.3) fL Plt Count (182-369) K/mm3 MPV (9.4-12.3) fl Neut % (Auto) (34.0-71.1) % Lymph % (Auto) (19.3-51.7) % [place] % (Auto) (4.7-12.5) % Eos % (Auto) (0.7-5.8) Baso % (Auto) (0.1-1.2) % Neut # (Auto) (1.56-6.13) K/mm3 Lymph # (Auto) (1.18-3.74) K/mm3 [place] # (Auto) (0.24-0.36) K/mm3 Eos # (Auto) (0.04-0.36) K/mm3 Baso # (Auto) (0.01-0.08) K/mm3 Manual Slide Review D-Dimer, Quantitative (0.19-0.50) mg/L Sodium 140 (136-145) mEq/L Potassium 4.1 (3.5-5.1) mEq/L Chloride 105 (98-107) mEq/L Carbon Dioxide 23 (21-32) mEq/L Anion Gap 16.1 H (5-15) BUN 11 (7-18) mg/dL Creatinine 0.7 (0.55-1.02) mg/dL Est Cr Clr Drug Dosing 133.73 mL/min Estimated GFR (MDRD) > 60 (>60) mL/min BUN/Creatinine Ratio 15.7 (14-18) Glucose 96 (74-106) mg/dL Calcium 8.4 L (8.5-10.1) mg/dL C-Reactive Protein 5.0 H* (<1.0) mg/dL Lipase 767 H (73-393) U/L Procalcitonin (<0.10) ng/mL Edward Results Last 24 Hours: Microbiology 07/24/20 13:55 Aerobic Blood Culture - Preliminary Blood - Venous NO GROWTH AFTER 3 DAYS Anaerobic Blood Culture - Preliminary NO GROWTH AFTER 3 DAYS 07/24/20 14:08 Aerobic Blood Culture - Preliminary Blood - Venous - Lab Draw NO GROWTH AFTER 3 DAYS Anaerobic Blood Culture - Preliminary NO GROWTH AFTER 3 DAYS Med Orders - Current: Current Medications Acetaminophen (Tylenol) 650 mg PO Q4H PRN PRN Reason: Pain (Mild 1-3)/fever Last Admin: 07/26/20 00:05 Dose: 650 mg Documented by: Azithromycin (Zithromax) 250 mg PO DAILY [facility] Stop: 07/30/20 09:01 Last Admin: 07/28/20 08:07 Dose: 250 mg Documented by: Enoxaparin Sodium (Lovenox) 40 mg SUBCUT DAILY [facility] Last Admin: 07/28/20 08:07 Dose: 40 mg Documented by: Remdesivir 100 mg/ Sodium (Chloride) 100 mls @ 100 mls/hr IV Q24H [facility] Stop: 07/28/20 18:59 Last Admin: 07/27/20 17:08 Dose: 100 mls/hr Documented by: Ceftriaxone Sodium 2 gm/ (Sodium Chloride) 100 mls @ 200 mls/hr IV Q24H [facility] Stop: 07/29/20 17:29 Last Admin: 07/27/20 17:08 Dose: 200 mls/hr Documented by: Sodium Chloride (Normal Saline) 250 mls @ 20 mls/hr IV ASDIRECTED [facility] Last Admin: 07/26/20 09:40 Dose: 20 mls/hr Documented by: Ondansetron HCl (Zofran) 4 mg IV Q4H PRN PRN Reason: Nausea/Vomiting Oxycodone HCl (Oxycodone) 5 mg PO Q4H PRN PRN Reason: Pain (moderate 4-6) Last Admin: 07/26/20 20:16 Dose: 5 mg Documented by: Pantoprazole Sodium (Protonix Iv) 40 mg IVPUSH Q12H [facility] Last Admin: 07/28/20 08:07 Dose: 40 mg Documented by: Sodium Chloride (Saline Flush) 10 ml FLUSH ONETIME PRN PRN Reason: IV FLUSH Last Admin: 07/24/20 14:38 Dose: 10 ml Documented by: Temazepam (Restoril) 15 mg PO BEDTIME PRN PRN Reason: Sleep Discontinued Medications Diatrizoate Meglum/Diatrizoate Sod (Gastrografin 37%) 120 ml PO ONETIME ONE Stop: 07/24/20 13:12 Last Admin: 07/24/20 14:38 Dose: 60 ml Documented by: Diphenhydramine HCl (Benadryl) 50 mg IVPUSH ONETIME ONE Stop: 07/24/20 14:03 Last Admin: 07/24/20 14:12 Dose: 50 mg Documented by: Sodium Chloride (Normal Saline) 1,000 mls @ 150 mls/hr IV NOW STA Stop: 07/24/20 18:38 Last Admin: 07/24/20 12:15 Dose: 999 mls/hr Documented by: Potassium Chloride 10 meq/ (Premix) 100 mls @ 100 mls/hr IV ASDIRECTED ANNALEE Stop: 07/28/20 13:44 Last Admin: 07/24/20 18:09 Dose: 100 mls/hr Documented by: Sodium Chloride (Normal Saline) 1,000 mls @ 125 mls/hr IV ASDIRECTED ANNALEE Last Admin: 07/24/20 14:00 Dose: 125 mls/hr Documented by: Sodium Chloride (Normal Saline) 1,000 mls @ 125 mls/hr IV ASDIRECTED ANNALEE Remdesivir 200 mg/ Sodium (Chloride) 250 mls @ 250 mls/hr IV ONETIME ONE Stop: 07/24/20 18:03 Last Admin: 07/24/20 18:56 Dose: 250 mls/hr Documented by: Potassium Chloride/Sodium Chloride (Normal Saline With 20 Meq Kcl) 1,000 mls @ 125 mls/hr IV ASDIRECTED [facility] Last Admin: 07/25/20 05:30 Dose: 125 mls/hr Documented by: Sodium Chloride (Normal Saline) Confirm Administered Dose 100 mls @ as directed .ROUTE .STK-MED ONE Stop: 07/25/20 17:29 Last Admin: 07/25/20 17:36 Dose: Not Given Documented by: Magnesium Sulfate 4 gm/ Premix 50 mls @ 12.5 mls/hr IV ONETIME ONE Stop: 07/26/20 12:59 Last Admin: 07/26/20 09:08 Dose: 12.5 mls/hr Documented by: Iopamidol (Isovue-300 (61%)) 100 ml IVPUSH ONETIME ONE Stop: 07/24/20 13:12 Last Admin: 07/24/20 14:38 Dose: 100 ml Documented by: Morphine Sulfate (Morphine) 2 mg IVPUSH Q2H PRN PRN Reason: Pain (severe 7-10) Stop: 07/25/20 18:07 Last Admin: 07/25/20 14:26 Dose: 2 mg Documented by: Ondansetron HCl (Zofran) 4 mg IVPUSH ONETIME ONE Stop: 07/24/20 12:00 Last Admin: 07/24/20 12:13 Dose: 4 mg Documented by: - Exam Quality Assessment: No: Supplemental Oxygen General: Alert, Oriented, Cooperative, No Acute Distress HEENT: Pupils Equal, Pupils Reactive, EOMI, Mucous Membr. Moist/[place] Neck: Supple, Trachea Midline Lungs: Clear to Auscultation, Normal Respiratory Effort Cardiovascular: Regular Rate, Regular Rhythm GI/Abdominal Exam: Normal Bowel Sounds, Soft, Non-Tender, No Distention (Female) Exam: Deferred Back Exam: Normal Inspection, Full Range of Motion Extremities: Normal Inspection, Normal Range of Motion, No Pedal Edema Skin: Warm, Dry, Intact Neurological: No New Focal Deficit, Normal Gait Psy/Mental Status: Alert, Normal Affect, Normal Mood Sepsis Event Note - Evaluation Sepsis Screening Result: No Definite Risk - Focused Exam Vital Signs: Vital Signs Temp Pulse Pulse Resp BP BP Pulse Ox 07/28/20 08:14 36.1 C 85 20 109/79 99 07/28/20 08:06 84 109/79 96 07/28/20 08:05 85 98 07/28/20 08:00 79 97 07/28/20 07:00 73 93 L 07/28/20 06:00 81 96 07/28/20 05:00 84 93 L 07/28/20 04:17 88 107/73 95 07/28/20 04:16 89 95 07/28/20 04:00 36.2 C 90 89 20 107/73 94 L 07/28/20 03:00 86 94 L 07/28/20 02:00 87 94 L 07/28/20 01:00 84 93 L 07/28/20 00:00 93 94 L - Problem List & Annotations (1) COVID-19 SNOMED Code(s): 080397869 Code(s): U07.1 - COVID-19 Status: Acute Priority: High Current Visit: Yes (2) Anemia SNOMED Code(s): 634884283 Code(s): D64.9 - ANEMIA, UNSPECIFIED Status: Acute Priority: High Current Visit: Yes Qualifiers: Anemia type: acquired or hereditary hemolytic anemia Hemolytic anemia type: acquired, autoimmune, drug-induced Qualified Code(s): 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 (3) Hypokalemia SNOMED Code(s): 18752451 Code(s): E87.6 - HYPOKALEMIA Status: Resolved Priority: High Current Visit: Yes (4) Pancreatitis SNOMED Code(s): 54953472 Code(s): K85.90 - ACUTE PANCREATITIS WITHOUT NECROSIS OR INFECTION, UNSP Status: Acute Priority: High Current Visit: Yes Qualifiers: Chronicity: acute Pancreatitis type: unspecified pancreatitis type Acute pancreatitis complication: no infection or necrosis Qualified Code(s): K85.90 - Acute pancreatitis without necrosis or infection, unspecified (5) Strep throat SNOMED Code(s): 61241423 Code(s): J02.0 - STREPTOCOCCAL PHARYNGITIS Status: Resolved Priority: High Current Visit: Yes - Problem List Review Problem List Initiated/Reviewed/Updated: Yes - Plan Plan:: 07/24/2020 The patient is a complex lady who presents with a number of different symptoms. The patient is anemic and her hemoglobin was 6.8 g/dL. She is received 2 units of packed red blood cells in the emergency department. CBC has been ordered. She also has leukocytosis that I think is the result of her strep throat. The patient also treated with amoxicillin and I cannot exclude a hemolytic type anemia from the amoxicillin. I placed the patient on a azithromycin 250 mg IV daily. The patient also has evidence of pancreatitis as her lipase is elevated at 2354 units. The patient will be kept n.p.o. for now. I have also ordered pain medications to help treat her abdominal pain. Ultrasound had been completed in the emergency department which ruled out cholelithiasis. The patient has denied alcohol. The patient also has a CRP which is elevated at 19.5 which is also indicative of Covid. She does have multiple electrolyte abnormalities which will also be replaced. I have ordered repeat laboratory testing for the morning. IV fluids consisting of normal saline at 120 mL liters per hour should also help to correct some of the electrolyte abnormalities. The patient's ALT and AST were normal and she does have requirements necessary for the use of Covid antivirals. I have elected to place the patient on SCDs for DVT prophylaxis due to his severe anemia. The patient has been encouraged to ambulate. Also of note the patient had mild cardiomegaly on chest x-ray. I have ordered a 2D echocardiogram to help rule out cardiomyopathy. 1. I spoke with Patient to provide information about convalescent plasma for her. 2. I offered them the Facts Sheet for Patients and Parents/Caregivers for COVID-19 convalescent plasma to read and review. 3. I stated that the therapy has been approved by the Emergency Use Authorization (EUA) process and not fully been FDA reviewed or approved. 4. I shared potential risk from the therapy including transmission of blood b orne pathogens such as HIV and hepatitis C, allergic and transfusion related reactions, post-transfusion purpura. Additionally, theoretical risks including a phenomenon called anti-body dependent enhancement of infection such as seen in dengue fever or attenuation of an immune response that may make patients more susceptible to re-infection. 5. I discussed there are other potential treatment options that are currently not FDA approved to treat COVID-19. 6. Discussed with the patient that is not an exclusion for convalescent plasma treatment, but the therapy has not been fully evaluated in patients. 7. Offered the opportunity to ask questions and all questions were answered. 8. She voiced understanding and agreed to proceed with treatment for her. I spoke with her to provide information about Remdesvir for her. 2. I offered them the Facts Sheet for Patients and Parents/Caregivers for COVID-19 Remdesvir to read and review. 3. I stated that the therapy has been approved by the Emergency Use Authorization (EUA) process and not fully been FDA reviewed or approved. 4. The patient meets EUA requirements. 5. I shared that the drug may cause liver abnormalities and infusion related side effects. Additionally, other side effects are possible but not known as the drug has had limited studies. 6. I discussed there are other potential treatment options that are currently not FDA approved to treat COVID-19. Plasma treatment, but the therapy has not been fully evaluated in patients. 7. Discussed with the patient that is not an exclusion for Remdesvir treatment. 8. Offered the opportunity to ask questions and all questions were answered. 9. She voiced understanding and agreed to proceed with treatment for her. 07/25/2020 Patient is doing better. She has less abdominal pain, she is off oxygen, her lipase has decreased to 1500, CRP is down to 16.9. Patient's hemoglobin is up to 8.7 after getting 2 units of packed red blood cells. White count is still significantly elevated at 27,000 and her platelets are 653. Pharmacologic anticoagulation for VTE prophylaxis has been held because of her severe anemia on presentation. She is can still continues to complain of epigastric pain. Patient has significant hyperbilirubinemia with bilirubin of 3.1 and elevated liver enzymes of AST 73 and ALT of 69. Her alkaline phosphatase is normal. Albumin is significantly low at 1.8. CT of the abdomen and ultrasound of the abdomen showed no inflammation of the pancreas, normal gallbladder, normal common bile duct, and normal liver. She continues to have sore throat and right sided neck pain just below her ear. This does make some concern for retroperitoneal abscess, but exam is fairly benign. White count still is elevated. Patient did not receive her convalescent plasma, and will not get it at this time because of not needing oxygen. She is also not on dexamethasone. CRP has improved. I question the patient's diagnosis of pancreatitis since the CT and ultrasound did not show any inflammation of the pancreas. It is possible that the lipase was increased for another unknown reason even possibly secondary to Covid. We will continue to treat like pancreatitis, but need to be very careful of fluid administration because of her Covid disease. Plan Get direct and indirect bilirubin, CRP, CMP, CBC, D-dimer, haptoglobin, LDH, magnesium, phosphorus, reticulocyte count, and procalcitonin in the morning Get stools for occult blood Start Rocephin 2 g daily and continue azithromycin If not improving tomorrow will consider CT scan of the neck. Start Protonix 40 mg IV every 12 hours Start clear liquid diet and stop IV fluids. 07/26/2020 She continues to improve. Abdominal pain has decreased and she is tolerating her diet. White count did decrease to 16,000 today and her bilirubin came down to 2.0 with a direct bilirubin of 1.7. LDH was normal, but reticulocytes were increased at 6.8%. Unsure if this is not due to transfusion and having an increase in iron for red blood cell production. Haptoglobin is not available. This may well have been due to hemolytic anemia from amoxicillin, but she is tolerating Rocephin with a maintained hemoglobin at 9.1. Patient should continue to improve and hopefully will be able to discharge in 1 to 2 days. 07/27/2020 Continues to improve. She will likely be appropriate for discharge in 1 to 2 days. The patient also has an elevated D-dimer and she will likely need to be on Xarelto for 31 days after discharge for DVT and VTE prophylaxis. Patient is still anemic and CBC has been ordered for the morning. Patient has been encouraged to ambulate. She has diet as tolerated. Patient has been tolerating current antibiotic that she has been placed on for her previously noted strep throat. This will be continued. 07/28/2020 The patient has continued to improve. She has 1 more day of remdesivir. The patient also has a elevated D-dimer and she will be discharged on Xarelto. I have ordered repeat laboratory testings for tomorrow to include CBC, CMP and D-d leyda. The patient will also have a lipase ordered as her pancreatitis has improved. The patient will be considered for transfusion if her hemoglobin drops below 7.0 g/dL again. The patient will be continued on DVT/PE T prophylaxis. She has been encouraged to ambulate. The patient should be appropriate for discharge tomorrow.
[2020-07-28] MEDS: cefTRIAXone 2 GM in Sodium Chloride 0.9% 100 ML IV SCH (16:45)
[2020-07-28] MEDS: REMDESIVIR (EUA) 100 MG in Sodium Chloride 0.9% 100 ML IV SCH (17:15)
--- NOTE | 2020-07-29 08:24 | PCM.DCSUM1 ---
Discharge Summary - Hospital Course HPI Initial Comments: Patient was admitted secondary to severe anemia along with COVID-19 positive. 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 (3) Hypokalemia SNOMED Code(s): 17786721 ICD Code: E87.6 - HYPOKALEMIA Status: Resolved Priority: High (4) Pancreatitis SNOMED Code(s): 54760580 ICD Code: K85.90 - ACUTE PANCREATITIS WITHOUT NECROSIS OR INFECTION, UNSP Status: Acute Priority: High Qualifiers: Chronicity: acute Pancreatitis type: unspecified pancreatitis type Acute pancreatitis complication: no infection or necrosis Qualified Code(s): K85.90 - Acute pancreatitis without necrosis or infection, unspecified (5) Strep throat SNOMED Code(s): 95417517 ICD Code: J02.0 - STREPTOCOCCAL PHARYNGITIS Status: Resolved Priority: High - Patient Summary/Data Hospital Course: The patient is a 29-year-old lady who had been admitted to the emergency department after being found positive for COVID-19. The patient also had been treated with ampicillin for strep throat and on her presentation to the emergency department she was known to be severely anemic. Her hemoglobin was 6.8 g/dL. During her hospitalization the patient had 2 units of blood transfused. Hemoccult was negative. It was thought that the anemia was secondary to hemolysis due to the antibiotic use of ampicillin. The patient had been transition to Rocephin for treatment of her strep throat and she tolerated this well without any need for further blood transfusions. Initially the patient's white blood cell count was markedly elevated at 25,750/mm. Patient ID of discharge had normalized her white blood cell count. For the COVID-19 the patient was treated with remdesivir 200 mg initially followed by 100 mg daily for 4 days afterwards. Patient also was treated with 2 L of convalescent plasma and she tolerated this well. The patient was not placed on dexamethasone as she was able to maintain her saturations. Upon admission the patient was also noted to have elevation of her lipase without specific evidence of pancreatitis. This is something that should be followed up with her primary care physician. By time of discharge her lipase had dropped to 778 units/L. During her course of hospitalization the patient had improved significantly. By day of discharge she felt like she should go home. She was tolerating room air. By the time of discharge the patient's vital signs were stable. The patient also had been discharged on dexamethasone 6 mg p.o. daily and had been given 5 tablets. Because of the patient being at high risk with elevated D-dimer and recent Covid infection she was placed on Xarelto 2.5 mg p.o. twice daily for 31 days. Patient also had been placed on azithromycin 250 mg p.o. daily with number 5 tablets given. She was tolerating her diet. And it has been recommended the patient continue with her diet as tolerated. She is also have activity as tolerated. Patient has been discharged from acute hospitalization with the recommendations listed above. - Discharge Plan Prescriptions/Med Rec: dexAMETHasone [Dexamethasone] 6 mg PO DAILY #5 tab Rivaroxaban [Xarelto] 2.5 mg PO BID #60 tablet Azithromycin [Zithromax] 250 mg PO DAILY #5 tablet Home Medications: Home Meds Ascorbic Acid [Vitamin C] 0 mg PO DAILY 07/24/20 [History] Ferrous Sulfate [Iron] 0 mg PO DAILY 07/24/20 [History] Azithromycin [Zithromax] 250 mg PO DAILY #5 tablet 07/29/20 [Rx] Rivaroxaban [Xarelto] 2.5 mg PO BID #60 tablet 07/29/20 [Rx] dexAMETHasone [Dexamethasone] 6 mg PO DAILY #5 tab 07/29/20 [Rx] Patient Handouts: COVID-19 Frequently Asked Questions, COVID-19, Acute Pancreatitis, [id number], Pancreatitis Eating Plan, Strep Throat, Adult, [id number], COVID-19: How to Protect Yourself and Others - CDC, Prevent the Spread of COVID-19 if You Are Sick - CDC, Sepsis, Self Care, Adult Forms: ED Department Discharge, Return to Work/Inpatient [facility] Referrals: Сергей Romero, [employer] [Nurse Practitioner] - - Discharge Summary/Plan Comment DC Time >30 min.: Yes - General Info Date of Service: 07/29/20 Admission Dx/Problem (Free Text: Admission Diagnosis/Problem Admission Diagnosis/Problem Anemia, COVID-19 Subjective Update: The patient says that she is doing much better. She has been tolerating the diet. The patient has been ambulating when possible. She feels like she can go home. Functional Status: Reports: Pain Controlled, Tolerating Diet - Review of Systems General: Reports: No Symptoms HEENT: Reports: No Symptoms Pulmonary: Reports: No Symptoms Cardiovascular: Reports: No Symptoms Gastrointestinal: Reports: No Symptoms Genitourinary: Reports: No Symptoms Musculoskeletal: Reports: No Symptoms Skin: Reports: No Symptoms Neurological: Reports: No Symptoms Psychiatric: Reports: No Symptoms - Patient Data Vitals - Most Recent: Last Vital Signs Temp 36.4 C 07/29/20 03:12 Pulse 95 07/28/20 20:03 Resp 19 07/29/20 03:12 BP 110/74 07/29/20 03:12 Pulse Ox 99 07/29/20 03:12 Weight - Most Recent: 93.25 kg I&O - Last 24 hours: Intake & Output 07/28/20 07/29/20 07/29/20 22:59 06:59 14:59 Intake Total 1160 Output Total 1200 Balance -40 Lab Results - Last 24 hrs: Laboratory Results - last 24 hr 07/28/20 07/28/20 07/29/20 Range/Units 04:16 04:16 05:17 WBC 6.95 (3.98-10.04) K/mm3 RBC 3.37 L (3.98-5.22) M/mm3 Hgb 9.2 L (11.2-15.7) gm/dl Hct 29.7 L (34.1-44.9) % MCV 88.1 (79.4-94.8) fl MCH 27.3 (25.6-32.2) pg MCHC 31.0 L (32.2-35.5) g/dl RDW Std Deviation 52.3 H (36.4-46.3) fL Plt Count 667 H (182-369) K/mm3 MPV 9.8 (9.4-12.3) fl Neut % (Auto) 75.4 H (34.0-71.1) % Lymph % (Auto) 16.4 L (19.3-51.7) % Letcher % (Auto) 5.9 (4.7-12.5) % Eos % (Auto) 1.9 (0.7-5.8) Baso % (Auto) 0.1 (0.1-1.2) % Neut # (Auto) 5.24 (1.56-6.13) K/mm3 Lymph # (Auto) 1.14 L (1.18-3.74) K/mm3 Letcher # (Auto) 0.41 H (0.24-0.36) K/mm3 Eos # (Auto) 0.13 (0.04-0.36) K/mm3 Baso # (Auto) 0.01 (0.01-0.08) K/mm3 Manual Slide Review Abnormal smear D-Dimer, Quantitative (0.19-0.50) mg/L Sodium (136-145) mEq/L Potassium (3.5-5.1) mEq/L Chloride (98-107) mEq/L Carbon Dioxide (21-32) mEq/L Anion Gap (5-15) BUN (7-18) mg/dL Creatinine (0.55-1.02) mg/dL Est Cr Clr Drug Dosing mL/min Estimated GFR (MDRD) (>60) mL/min BUN/Creatinine Ratio (14-18) Glucose (74-106) mg/dL Calcium (8.5-10.1) mg/dL Total Bilirubin (0.2-1.0) mg/dL AST (15-37) U/L ALT (14-59) U/L Alkaline Phosphatase (46-116) U/L C-Reactive Protein (<1.0) mg/dL Total Protein (6.4-8.2) g/dl Albumin (3.4-5.0) g/dl Globulin gm/dL Albumin/Globulin Ratio (1-2) Lipase 767 H (73-393) U/L Procalcitonin 2.67 H (<0.10) ng/mL 07/29/20 07/29/20 Range/Units 05:17 05:17 WBC (3.98-10.04) K/mm3 RBC (3.98-5.22) M/mm3 Hgb (11.2-15.7) gm/dl Hct (34.1-44.9) % MCV (79.4-94.8) fl MCH (25.6-32.2) pg MCHC (32.2-35.5) g/dl RDW Std Deviation (36.4-46.3) fL Plt Count (182-369) K/mm3 MPV (9.4-12.3) fl Neut % (Auto) (34.0-71.1) % Lymph % (Auto) (19.3-51.7) % Letcher % (Auto) (4.7-12.5) % Eos % (Auto) (0.7-5.8) Baso % (Auto) (0.1-1.2) % Neut # (Auto) (1.56-6.13) K/mm3 Lymph # (Auto) (1.18-3.74) K/mm3 Letcher # (Auto) (0.24-0.36) K/mm3 Eos # (Auto) (0.04-0.36) K/mm3 Baso # (Auto) (0.01-0.08) K/mm3 Manual Slide Review D-Dimer, Quantitative 3.14 H (0.19-0.50) mg/L Sodium 141 (136-145) mEq/L Potassium 4.2 (3.5-5.1) mEq/L Chloride 106 (98-107) mEq/L Carbon Dioxide 22 (21-32) mEq/L Anion Gap 17.2 H (5-15) BUN 13 (7-18) mg/dL Creatinine 0.8 (0.55-1.02) mg/dL Est Cr Clr Drug Dosing 117.02 mL/min Estimated GFR (MDRD) > 60 (>60) mL/min BUN/Creatinine Ratio 16.3 (14-18) Glucose 102 (74-106) mg/dL Calcium 8.6 (8.5-10.1) mg/dL Total Bilirubin 1.3 H (0.2-1.0) mg/dL AST 53 H (15-37) U/L ALT 58 (14-59) U/L Alkaline Phosphatase 73 (46-116) U/L C-Reactive Protein 3.3 H* (<1.0) mg/dL Total Protein 7.3 (6.4-8.2) g/dl Albumin 2.2 L (3.4-5.0) g/dl Globulin 5.1 gm/dL Albumin/Globulin Ratio 0.4 L (1-2) Lipase 778 H (73-393) U/L Procalcitonin (<0.10) ng/mL CRISTOFER Results - Last 24 hrs: Microbiology 07/24/20 13:55 Aerobic Blood Culture - Preliminary Blood - Venous NO GROWTH AFTER 4 DAYS Anaerobic Blood Culture - Preliminary NO GROWTH AFTER 4 DAYS 07/24/20 14:08 Aerobic Blood Culture - Preliminary Blood - Venous - Lab Draw NO GROWTH AFTER 4 DAYS Anaerobic Blood Culture - Preliminary NO GROWTH AFTER 4 DAYS Med Orders - Current: Current Medications Acetaminophen (Tylenol) 650 mg PO Q4H PRN PRN Reason: Pain (Mild 1-3)/fever Last Admin: 07/26/20 00:05 Dose: 650 mg Documented by: Azithromycin (Zithromax) 250 mg PO DAILY [facility], [facility]1983 Stop: 07/30/20 09:01 Last Admin: 07/28/20 08:07 Dose: 250 mg Documented by: Enoxaparin Sodium (Lovenox) 40 mg SUBCUT DAILY [facility], [facility]1983 Last Admin: 07/28/20 08:07 Dose: 40 mg Documented by: Ceftriaxone Sodium 2 gm/ (Sodium Chloride) 100 mls @ 200 mls/hr IV Q24H [facility], [facility]1983 Stop: 07/29/20 17:29 Last Admin: 07/28/20 16:45 Dose: 200 mls/hr Documented by: Sodium Chloride (Normal Saline) 250 mls @ 20 mls/hr IV ASDIRECTED [facility], 1928–1983 Last Admin: 07/26/20 09:40 Dose: 20 mls/hr Documented by: Ondansetron HCl (Zofran) 4 mg IV Q4H PRN PRN Reason: Nausea/Vomiting Oxycodone HCl (Oxycodone) 5 mg PO Q4H PRN PRN Reason: Pain (moderate 4-6) Last Admin: 07/26/20 20:16 Dose: 5 mg Documented by: Pantoprazole Sodium (Protonix Iv) 40 mg IVPUSH Q12H [facility], [facility]1983 Last Admin: 07/28/20 20:02 Dose: 40 mg Documented by: Sodium Chloride (Saline Flush) 10 ml FLUSH ONETIME PRN PRN Reason: IV FLUSH Last Admin: 07/24/20 14:38 Dose: 10 ml Documented by: Temazepam (Restoril) 15 mg PO BEDTIME PRN PRN Reason: Sleep Discontinued Medications Diatrizoate Meglum/Diatrizoate Sod (Gastrografin 37%) 120 ml PO ONETIME ONE Stop: 07/24/20 13:12 Last Admin: 07/24/20 14:38 Dose: 60 ml Documented by: Diphenhydramine HCl (Benadryl) 50 mg IVPUSH ONETIME ONE Stop: 07/24/20 14:03 Last Admin: 07/24/20 14:12 Dose: 50 mg Documented by: Sodium Chloride (Normal Saline) 1,000 mls @ 150 mls/hr IV NOW STA Stop: 07/24/20 18:38 Last Admin: 07/24/20 12:15 Dose: 999 mls/hr Documented by: Potassium Chloride 10 meq/ (Premix) 100 mls @ 100 mls/hr IV ASDIRECTED [facility], [facility]1983 Stop: 07/28/20 13:44 Last Admin: 07/24/20 18:09 Dose: 100 mls/hr Documented by: Sodium Chloride (Normal Saline) 1,000 mls @ 125 mls/hr IV ASDIRECTED [facility], [facility]–1983 Last Admin: 07/24/20 14:00 Dose: 125 mls/hr Documented by: Sodium Chloride (Normal Saline) 1,000 mls @ 125 mls/hr IV ASDIRECTED [facility], [facility]–1983 Remdesivir 200 mg/ Sodium (Chloride) 250 mls @ 250 mls/hr IV ONETIME ONE Stop: 07/24/20 18:03 Last Admin: 07/24/20 18:56 Dose: 250 mls/hr Documented by: Remdesivir 100 mg/ Sodium (Chloride) 100 mls @ 100 mls/hr IV Q24H [facility]1983 Stop: 07/28/20 18:59 Last Admin: 07/28/20 17:15 Dose: 100 mls/hr Documented by: Potassium Chloride/Sodium Chloride (Normal Saline With 20 Meq Kcl) 1,000 mls @ 125 mls/hr IV ASDIRECTED [facility], [facility]–1983 Last Admin: 07/25/20 05:30 Dose: 125 mls/hr Documented by: Sodium Chloride (Normal Saline) Confirm Administered Dose 100 mls @ as directed .ROUTE .STK-MED ONE Stop: 07/25/20 17:29 Last Admin: 07/25/20 17:36 Dose: Not Given Documented by: Magnesium Sulfate 4 gm/ Premix 50 mls @ 12.5 mls/hr IV ONETIME ONE Stop: 07/26/20 12:59 Last Admin: 07/26/20 09:08 Dose: 12.5 mls/hr Documented by: Iopamidol (Isovue-300 (61%)) 100 ml IVPUSH ONETIME ONE Stop: 07/24/20 13:12 Last Admin: 07/24/20 14:38 Dose: 100 ml Documented by: Morphine Sulfate (Morphine) 2 mg IVPUSH Q2H PRN PRN Reason: Pain (severe 7-10) Stop: 07/25/20 18:07 Last Admin: 07/25/20 14:26 Dose: 2 mg Documented by: Ondansetron HCl (Zofran) 4 mg IVPUSH ONETIME ONE Stop: 07/24/20 12:00 Last Admin: 07/24/20 12:13 Dose: 4 mg Documented by: - Exam Quality Assessment: Denies: Supplemental Oxygen General: Reports: Alert, Oriented, Cooperative HEENT: Reports: Pupils Equal, Pupils Reactive, EOMI Neck: Reports: Supple, Trachea Midline Lungs: Reports: Clear to Auscultation, Normal Respiratory Effort Cardiovascular: Reports: Regular Rate, Regular Rhythm GI/Abdominal Exam: Normal Bowel Sounds, Soft, Non-Tender, No Distention (Female) Exam: Deferred Rectal (Female) Exam: Deferred Back Exam: Reports: Normal Inspection, Full Range of Motion Extremities: Normal Inspection, Normal Range of Motion, No Pedal Edema Skin: Reports: Warm, Dry, Intact Neurological: Reports: No New Focal Deficit, Normal Gait Psy/Mental Status: Reports: Alert, Normal Affect *Q Meaningful Use (DIS) - VTE *Q VTE Pharmacological Contraindications *Q: Patient has Severe Anemia
[2020-07-29] MEDS: Pantoprazole 40 MG Vial IVPUSH SCH (09:58)
[2020-07-29] MEDS: Azithromycin 250 MG Tab PO SCH (09:58)
[2020-07-29] MEDS: Enoxaparin 40 MG/0.4 ML Syringe SUBCUT SCH (09:59)
[2020-07-29 10:15] VITALS: BP 105/73; PULSE 75
== END 2020-07-29 10:45 | disposition home or self-care (01) | DRG 177 ==
LOC: JD.ED 10:32 → JD.ICU 18:02
PROVIDERS: ADMIT Internal Medicine; ATTEND Internal Medicine
PROC: XW033E5 Introduction of Remdesivir Anti-infective into Peripheral Vein, Percutaneous Approach, New Technology Group 5 (ICD-10-PCS; principal; 2020-07-24)
PROC: 8E0ZXY6 Isolation (ICD-10-PCS; 2020-07-24)
PROC: XW13325 Transfusion of Convalescent Plasma (Nonautologous) into Peripheral Vein, Percutaneous Approach, New Technology Group 5 (ICD-10-PCS; 2020-07-24)
PROC: 30233N1 Transfusion of Nonautologous Red Blood Cells into Peripheral Vein, Percutaneous Approach (ICD-10-PCS; 2020-07-24)
DX: U07.1 COVID-19 (principal); K85.90 Acute pancreatitis without necrosis or infection, unspecified; D59.0 Drug-induced autoimmune hemolytic anemia; E87.6 Hypokalemia; J02.0 Streptococcal pharyngitis; D64.9 Anemia, unspecified; K21.9 Gastro-esophageal reflux disease without esophagitis; E66.9 Obesity, unspecified; Z98.890 Other specified postprocedural states; Z79.899 Other long term (current) drug therapy; Z91.09 Other allergy status, other than to drugs and biological substances
CPT/HCPCS: 36415; 36430; 71045; 74177; 76705; 80048; 80053; 81001; 82247; 82248; 82270; 82728; 82977; 83540; 83605; 83615; 83690; 83735; 84100; 84145; 84466; 84703; 85025; 85045; 85379; 86140; 86850; 86900; 86901; 86922; 87040; 93308; 96365; 96366; 96375; 99283; 99285-25; A9270-GY; C9113; J0696; J1200; J1650; J2270; J2405; J3475; J3480; J7030; J7050; P9016; Q9963; Q9967; U0002

== ENCOUNTER 2020-07-31 13:11 | Emergency (ER) | payer SELFPAY ==
[2020-07-31 13:29] VITALS: PULSE 93
[2020-07-31 13:31] VITALS: BP 113/82
--- NOTE | 2020-07-31 14:01 | EDM.PDOC ---
ED HPI GENERAL MEDICAL PROBLEM - General Chief Complaint: Lower Extremity Injury/Pain Stated Complaint: LEG CONCERN/POSS BLOODCLOT Time Seen by Provider: 07/31/20 13:38 Source of Information: Reports: Patient, RN Notes Reviewed History Limitations: Reports: No Limitations - History of Present Illness INITIAL COMMENTS - FREE TEXT/NARRATIVE: Patient is a 29-year-old female who presents to the ED for evaluation of a possible blood clot in her legs. She was diagnosed with COVID-19 on 07/24, admitted to the hospital for treatment, and sent home with medications including Xarelto. Patient states she was unable to afford Xarelto as it was over $600, so she did not fill this. She states since then, she is concerned about having blood clots in her legs, she notes that they have been slightly swollen, and "feeling weird like tingling". She states that other Covid symptoms are okay at this time, and she is not too short of breath. O2 sats are 99% on room air. She again strictly comes to the ER over concerns regarding possible DVTs in her legs. She is to follow-up with Felix Romero for primary care. She denies any fever/chills, nausea/vomiting/diarrhea. - Related Data Allergies Allergy/AdvReac Type Severity Reaction Status Date / Time dog dander Allergy Cannot Verified 07/24/20 10:51 Remember Home Meds: Home Meds Ascorbic Acid [Vitamin C] 0 mg PO DAILY 07/24/20 [History] Ferrous Sulfate [Iron] 0 mg PO DAILY 07/24/20 [History] Azithromycin [Zithromax] 250 mg PO DAILY #5 tablet 07/29/20 [Rx] Rivaroxaban [Xarelto] 2.5 mg PO BID #60 tablet 07/29/20 [Rx] dexAMETHasone [Dexamethasone] 6 mg PO DAILY #5 tab 07/29/20 [Rx] Past Medical History - Past Health History Medical/Surgical History: Denies Medical/Surgical History HEENT History: Reports: Other (See Below) Other HEENT History: history of oral surgery with cap on tooth Cardiovascular History: Reports: None Respiratory History: Reports: None Gastrointestinal History: Reports: GERD WEIGHT SHIFTER History: Reports: , Spontaneous Musculoskeletal History: Reports: Other (See Below) Other Musculoskeletal History: right achilles surgery 1 year ago Endocrine/Metabolic History: Reports: Obesity/BMI 30+ Hematologic History: Reports: None - Infectious Disease History Infectious Disease History: Reports: Chicken Pox - Past Surgical History HEENT Surgical History: Reports: Oral Surgery Female Surgical History: Reports: Other (See Below) Other Female Surgeries/Procedures: breast surgery--abcess Social & Family History - Family History Family Medical History: Noncontributory - Caffeine Use Caffeine Use: Reports: Tea Review of Systems - Review of Systems Review Of Systems: Comprehensive ROS is negative, except as noted in HPI. ED EXAM, GENERAL - Physical Exam Exam: See Below Exam Limited By: No Limitations General Appearance: Alert, WD/WN, No Apparent Distress Respiratory/Chest: No Respiratory Distress, Lungs Clear, Normal Breath Sounds, No Accessory Muscle Use, Chest Non-Tender Cardiovascular: Normal Peripheral Pulses, Regular Rate, Rhythm, No Murmur Peripheral Pulses: 2+: Dorsalis Pedis (L), Dorsalis Pedis (R) Extremities: Normal Inspection, Normal Range of Motion, Normal Capillary Refill Neurological: Alert, Oriented, Normal Cognition, No Motor/Sensory Deficits Psychiatric: Normal Affect, Normal Mood Skin Exam: Warm, Dry, Intact, Normal Color, No Rash Course - Vital Signs Last Recorded V/S: Last Vital Signs Temp 98.0 F 07/31/20 13:22 Pulse 93 07/31/20 13:22 Resp 20 07/31/20 13:22 BP 113/82 07/31/20 13:31 Pulse Ox 99 07/31/20 13:31 - Orders/Labs/Meds Orders: Active Orders 24 hr Category Date Time Status Venous Doppler Lwr Ext Bi [US] Stat Exams 07/31/20 13:52 Taken Labs: Laboratory Tests 07/31/20 Range/Units 14:10 PT 11.5 (9.7-11.7) SECONDS INR 1.08 APTT 24 (22-31) SECONDS - Re-Assessments/Exams Free Text/Narrative Re-Assessment/Exam: 07/31/20 13:59 Patient presents to the ED for evaluation of possible blood clots in her legs. She does have COVID-19 active at this time. Was unable to afford her Xarelto. We will do ultrasounds of her legs to evaluate for blood clot possibility. As she cannot afford the Xarelto, she may either take 325 mg aspirin daily, or be started on Coumadin. However she is as well. 07/31/20 15:41 The patient's ultrasound is negative for blood clots in the legs. I did explain this to the patient, and she is reassured at this time, she will be discharged home with general recommendations. Departure - Departure Time of Disposition: 15:42 Disposition: Home, Self-Care 01 Condition: Good Clinical Impression: COVID-19 Leg pain Qualifiers: Laterality: bilateral Qualified Code(s): M79.604 - Pain in right leg; M79.605 - Pain in left leg - Discharge Information *PRESCRIPTION DRUG MONITORING PROGRAM REVIEWED*: No *COPY OF PRESCRIPTION DRUG MONITORING REPORT IN PATIENT ADI: No Instructions: Prevent the Spread of COVID-19 if You Are Sick - [facility] [place] Referrals: PCP,None [Primary Care Provider] - Forms: ED Department Discharge Additional Instructions: You were evaluated in the ER today for your suspected DVT in your legs. Ultrasounds were obtained, demonstrate no sign of DVTs within your legs at this time. As you cannot afford the Xarelto that was prescribed to you, if you would wish to take an anticoagulant (blood thinner), you may take aspirin, 81 mg daily for further anticoagulation properties. Please return to the ER at any time if symptoms change or worsen. Sepsis Event Note (ED) - Evaluation Sepsis Screening Result: No Definite Risk - Focused Exam Vital Signs: Vital Signs Temp Pulse Resp BP Pulse Ox 07/31/20 13:31 113/82 99 07/31/20 13:22 98.0 F 93 20 98 - My Orders Last 24 Hours: My Active Orders 07/31/20 13:52 Venous Doppler Lwr Ext Bi [US] Stat - Assessment/Plan Last 24 Hours: My Active Orders 07/31/20 13:52 Venous Doppler Lwr Ext Bi [US] Stat
--- NOTE | 2020-08-07 15:21 | US ---
"PROCEDURE INFORMATION: Exam: US Duplex Lower Extremity Veins, Bilateral Exam date and time: 07/31/2020 2:51 PM Age: 29 years old Clinical indication: Swelling (edema) of limb; Lower extremity, right and lower extremity, left TECHNIQUE: Imaging protocol: Real-time duplex ultrasound of the extremities with 2-D ann scale, color Doppler flow and spectral waveform analysis with image documentation. Complete exam focused on the bilateral lower extremity veins. COMPARISON: No relevant prior studies available. FINDINGS: Right deep veins: Unremarkable. The common femoral, femoral, proximal profunda femoral and popliteal veins are patent without thrombus. Normal Doppler waveforms. Normal compressibility and/or augmentation response. Right superficial veins: Saphenofemoral junction is patent without thrombus. Left deep veins: Unremarkable. The common femoral, femoral, proximal profunda femoral and popliteal veins are patent without thrombus. Normal Doppler waveforms. Normal compressibility and/or augmentation response. Left superficial veins: Saphenofemoral junction is patent without thrombus. Soft tissues: Unremarkable. IMPRESSION: No evidence of deep vein thrombosis. Thank you for allowing us to participate in the care of your patient. Dictated and Authenticated by: Jake Phillips MD [facility], [facility] [place] | Final Radiology Report CONFIDENTIALITY STATEMENT This report is intended only for use by the referring physician, and only in accordance with law. If you received this in error, call [phone]. Page 2 of 2 07/31/2020 4:35 PM Central Time ([place] & [place]) GALI"
== END 2020-07-31 16:00 | disposition home or self-care (01) ==
LOC: JD.ED 13:11
DX: M79.604 Pain in right leg (principal); M79.605 Pain in left leg; U07.1 COVID-19; E66.9 Obesity, unspecified; Z68.27 Body mass index [BMI] 27.0-27.9, adult; Z79.899 Other long term (current) drug therapy; Z91.048 Other nonmedicinal substance allergy status
CPT/HCPCS: 36415; 85610; 85730; 93970; 93970-26; 99283; 99284-25